=== PATIENT | male | born 1970 | race Caucasian/White ===

== ENCOUNTER 2020-10-02 08:19 | Outpatient (REF) | payer OTHER, SELFPAY ==
[2020-10-02 09:08] LABS: MANUAL DIFF FLAG NO
[2020-10-02 09:12] LABS: Basophils Percent Auto 0.6 % (0-2); Eosinophils Absolute Auto 0.1 X10*3/uL (0.0-0.4); Eosinophils Percent Auto 1.4 % (0-4); Hematocrit 49.2 % (42-52); Imm Gran Abs Auto 0.05 X10*3/uL (0.00-0.03); Lymphocytes Absolute Auto 1.4 X10*3/uL (1.2-4.9); Mean Corpuscular HGB Conc 34.6 g/dl (31.0-36.0); Mean Corpuscular Hemoglobin 31.7 pg (27.0-33.0); Mean Corpuscular Volume 91.6 fL (80-98); Mean Platelet Volume 10.1 fL (9.4-12.4); Monocytes Absolute Auto 0.4 X10*3/uL (0.1-1.2); Monocytes Percent Auto 8.2 % (2-11); Neutrophils Absolute Auto 3.1 X10*3/uL (2.0-8.3); Neutrophils Percent Auto 60.8 % (45-73); Platelet Count 248 X10*3/uL (160-400); Red Blood Count 5.37 X10*6/uL (4.60-5.80); Red Cell Distribution Width 12.9 % (11.0-16.0)
[2020-10-02 09:48] LABS: Alanine Aminotransferase 135 U/L (0-40); Albumin Level 4.1 g/dL (3.5-5.0); Alkaline Phosphatase 92 U/L (39-117); Anion Gap 11 (12-20); Aspartate Amino Transferase 83 U/L (5-37); Bilirubin Total 0.9 mg/dL (0.0-1.0); Blood Urea Nitrogen 11 mg/dL (9-16); Calcium 9.1 mg/dL (8.4-10.2); Carbon Dioxide 26 mmol/L (22-29); Chloride 106 mmol/L (96-108); Cholesterol 206 mg/dL; Estimated Glomerular Filt Rate > 60; Glucose Random 161 mg/dL (60-115); HDL Cholesterol 42 mg/dL; LDL Cholesterol Calculated 118 mg/dl; Potassium 4.4 mmol/L (3.3-5.1); Sodium 139 mmol/L (135-145); Total Protein 7.5 g/dL (6.5-8.0); Triglycerides 231 mg/dL; Uric Acid 5.6 mg/dL (3.4-7.0)
[2020-10-02 10:07] LABS: Erythrocyte Sedimentation Rate 2 MM/HR (0-15)
[2020-10-02 10:10] LABS: Free T4 (Free Thyroxine) 0.85 ng/dL (0.71-1.85); Thyroid Stimulating Hormone 0.86 uIU/mL (0.32-4.0)
[2020-10-02 10:37] LABS: Folate 12.1 ng/mL (> or = 4.0); Vitamin B12 257 pg/mL (200-900)
== END 2020-10-02 08:20 | disposition home or self-care (01) ==
LOC: HO.LAB 08:19
PROVIDERS: PCP Internal Medicine; Visit Provider Internal Medicine
DX: I10 Essential (primary) hypertension (principal); R79.89 Other specified abnormal findings of blood chemistry; L40.50 Arthropathic psoriasis, unspecified; E78.00 Pure hypercholesterolemia, unspecified; E78.1 Pure hyperglyceridemia
CPT/HCPCS: 36415; 80053; 80061; 82607; 82746; 84153; 84439; 84443; 84550; 85025; 85652

== ENCOUNTER 2020-10-03 15:10 | Outpatient (REF) | payer OTHER, SELFPAY ==
[2020-10-03 16:13] LABS: Iron 69 mcg/dL (45-160); Percent Iron Saturation 20 % (15-50); Total Iron Binding Capacity 350 mcg/dL (228-428); Unsaturated Iron Binding 281 ug/dL
[2020-10-04 03:52] LABS: HBc Num1 0.06 S/CO (0.00-0.79); HBsAGNum1 0.18 S/CO (0.00-0.99); Hepatitis B Core Antibody Nonreactive (Nonreactive); Hepatitis B Surface Antigen Negative (Negative)
[2020-10-04 03:53] LABS: HBS Num1 0.21 mIU/mL (0-7.99); ~HepC Num1 0.12 S/CO (0.00-0.79); ~Hepatitis B Surface Antibody NONREACTIVE (Nonreactive); ~Hepatitis C Antibody Nonreactive (Nonreactive)
[2020-10-04 13:27] LABS: Anti Nuclear Antibody Screen NEGATIVE (NEGATIVE)
[2020-10-05 07:41] LABS: Prot Elec - Albumin 4.5 g/dL (3.8-4.8); Prot Elec - Alpha1 0.3 g/dL (0.2-0.3); Prot Elec - Alpha2 0.6 g/dL (0.5-0.9); Prot Elec - Beta 1 0.5 g/dL (0.4-0.6); Prot Elec - Beta 2 0.4 g/dL (0.2-0.5); Prot Elec - Gamma 1.6 g/dL (0.8-1.7); Prot Elec - Total Protein 7.9 g/dL (6.1-8.1)
[2020-10-08 23:37] LABS: Smooth Muscle Antibody <20 U (<20)
== END 2020-10-03 15:11 | disposition home or self-care (01) ==
LOC: HO.LAB 15:10
PROVIDERS: PCP Internal Medicine; Visit Provider Internal Medicine
DX: Z01.84 Encounter for antibody response examination (principal); Z11.59 Encounter for screening for other viral diseases; R79.89 Other specified abnormal findings of blood chemistry; R94.5 Abnormal results of liver function studies
CPT/HCPCS: 36415; 83540; 84155; 84165; 86038; 86039; 86255; 86704; 86706; 86803; 87340

== ENCOUNTER 2020-11-01 07:17 | Outpatient (REF) | payer OTHER, SELFPAY ==
--- NOTE | ~2020-11-01 | US_ITS ---
EXAMINATION: US ABDOMEN COMPLETE CLINICAL INFORMATION: Other specified abnormal findings of blood chemistry. COMPARISON: None. TECHNIQUE: Real-time imaging of the abdominal viscera. Technically limited study secondary to body habitus. FINDINGS: PANCREAS: Normal. ABDOMINAL AORTA: The proximal, mid, and distal segments are normal in caliber. INFERIOR VENA CAVA: Visualized portions are normal. LIVER: The liver is normal in size. The liver contour is normal. Increased parenchymal echogenicity. No focal hepatic lesion. There is no intrahepatic biliary duct dilatation seen. GALLBLADDER: Normal. The gallbladder is physiologically distended without evidence of stones, sludge, polyps, wall thickening or pericholecystic fluid. COMMON BILE DUCT: Normal in caliber measuring 0.4 cm in diameter. RIGHT KIDNEY: Normal. No hydronephrosis. No renal calculi or focal parenchymal lesions. The kidney measures 12.5 cm in maximum dimension. LEFT KIDNEY: Normal. No hydronephrosis. No renal calculi or focal parenchymal lesions. The kidney measures 13.2 cm in maximum dimension. SPLEEN: Mildly enlarged. The spleen measures 15.9 cm in maximum dimension. FREE FLUID: None. US/US abdomen complete IMPRESSION: Increased hepatic parenchymal echogenicity, which can be seen in the setting of steatosis. Underlying hepatocellular disease cannot be excluded. No hepatic parenchymal lesion or biliary ductal dilatation. Mild splenomegaly.
== END 2020-11-01 07:18 | disposition home or self-care (01) ==
LOC: HO.US 07:17
PROVIDERS: Visit Provider Internal Medicine
DX: R79.89 Other specified abnormal findings of blood chemistry (principal)
CPT/HCPCS: 76700

== ENCOUNTER 2021-05-10 09:07 | Outpatient (REF) | payer OTHER, SELFPAY ==
[2021-05-10 10:15] LABS: Prothrombin Time 11.3 SEC (9.9-13.0)
[2021-05-10 10:18] LABS: Alanine Aminotransferase 73 U/L (0-40); Alkaline Phosphatase 87 U/L (39-117); Aspartate Amino Transferase 36 U/L (5-37); Bilirubin Direct 0.3 mg/dL (0.0-0.5); Bilirubin Total 0.5 mg/dL (0.0-1.0); Total Protein 7.5 g/dL (6.5-8.0)
[2021-05-11 13:41] LABS: Alpha 1 Anti-trypsin 151 mg/dL (83-199)
[2021-05-12 22:01] LABS: Anti Nuclear Antibody Screen NEGATIVE (NEGATIVE)
[2021-05-15 12:42] LABS: Smooth Muscle Antibody <20 U (<20)
[2021-05-15 15:17] LABS: Mitochondrial Antibodies NEGATIVE (NEGATIVE)
== END 2021-05-10 09:08 | disposition home or self-care (01) ==
LOC: HO.10HDL 09:07
PROVIDERS: Visit Provider Internal Medicine
DX: K76.0 Fatty (change of) liver, not elsewhere classified (principal); R74.8 Abnormal levels of other serum enzymes
CPT/HCPCS: 36415; 80076; 82103; 85610; 86015; 86038; 86039; 86255; 86256

== ENCOUNTER 2021-05-31 08:53 | Day surgery (SDC) | payer OTHER, SELFPAY ==
[2021-05-24 14:46] VITALS: BMI 39.3
--- NOTE | 2021-05-30 10:59 | P.CONAN_ITS ---
Documented by User: Gricelda Mccarthy NP 05/30/21 10:59 HPI - Anesthesia Eval Consult details Narrative: 51yo M for Colonoscopy PMFSH Active Problems Active Problems: All Active Problems (Updated 05/24/21 @ 14:45 by Lilo Anderson RN) Colon cancer screening (Acute) LFT elevation (Acute) Impaired glucose tolerance (Acute) Biceps tendon rupture, proximal (Acute) Annual physical exam (Acute) Fatty liver (Acute) Hypertriglyceridemia (Acute) Hypertension (Acute) Carpal tunnel syndrome, bilateral (Acute) Psoriatic arthritis (Acute) Obesity (Acute) Past Medical History Medical History Carpal tunnel syndrome, bilateral Concussion COVID-19 vaccine series completed Elevated blood sugar Gout Hypertension Hypertriglyceridemia Obesity Psoriatic arthritis Family History Family History Mother Breast cancer Maternal Grandmother Breast cancer Father Substance abuse Paternal Grandfather Substance abuse Paternal Grandmother Substance abuse Surgical History Surgical History Hx of appendectomy S/P left knee arthroscopy Social History Social History Housing: House Are you a primary career services coordinator to a significant other at home: No Do you presently have visiting nurse or other home services: No Alcohol intake: current Alcohol intake frequency: holidays/special occasions only Patient Tobacco Use Status: Never used Tobacco e-Cigarette/Vaping Use: Never Used Second Hand Smoke Exposure: No Use of substances other than those prescribed or required for medical reasons: No Have you been hit, kicked, punched, or otherwise hurt by someone within the past year? If so, by whom?: No Are you DNR?: No Advance Directives: No Advance Directives Information Provided: Yes Advance Directives on File: No Recently lost weight without trying: No Eating poorly because of decreased appetite: No Nutrition Risks: No Nutritional Risk Poor oral hygiene: No (upper left broken molar) service: No Current occupational status: employed Cognitive needs: No Hearing needs: No Vision needs: Yes (Glasses) Meds Allergies Allergy/AdvReac Type Severity Reaction Status Date / Time bee pollen [bee stings] Allergy Severe Anaphylaxis Verified 05/24/21 14:46 lisinopril Allergy Intermediate cough Verified 04/29/21 08:57 Home Medications Medication Instructions Recorded Confirmed Last Taken Type allopurinol 300 mg tablet 300 mg PO DAILY 06/26/20 05/24/21 Unknown History etanercept 25 mg/0.5 mL 25 mg SUBCUT QWEEK 06/26/20 05/24/21 Unknown History subcutaneous solution (Enbrel) Exam Exam Date and Time: May 30, 2021 1059 Height,Weight and Vital Signs: Height 5 ft 10 in Weight 124.284 kg Assessment and Plan Assessment Anesthesia Assessment: Chart Reviewed Documented by User: Agustina Lezama MD 05/31/21 10:21 [facility] Active Problems Active Problems: All Active Problems (Updated 05/24/21 @ 14:45 by Lilo Anderson RN) Colon cancer screening (Acute) LFT elevation (Acute) Impaired glucose tolerance (Acute) Biceps tendon rupture, proximal (Acute) Annual physical exam (Acute) Fatty liver (Acute) Hypertriglyceridemia (Acute) Hypertension (Acute) Carpal tunnel syndrome, bilateral (Acute) Psoriatic arthritis (Acute) Obesity (Acute) Snoring- never tested for MATHIEU Past Medical History Medical History Carpal tunnel syndrome, bilateral Concussion COVID-19 vaccine series completed Elevated blood sugar Gout Hypertension Hypertriglyceridemia Obesity Psoriatic arthritis Family History Family History Mother Breast cancer Maternal Grandmother Breast cancer Father Substance abuse Paternal Grandfather Substance abuse Paternal Grandmother Substance abuse Family history of problems with anesthesia: No Surgical History Surgical History Hx of appendectomy S/P left knee arthroscopy History of Problems with Anesthesia: No Social History Social History Housing: House Are you a primary career services coordinator to a significant other at home: No Do you presently have visiting nurse or other home services: No Alcohol intake: current Alcohol intake frequency: holidays/special occasions only Patient Tobacco Use Status: Never used Tobacco e-Cigarette/Vaping Use: Never Used Second Hand Smoke Exposure: No Use of substances other than those prescribed or required for medical reasons: No Have you been hit, kicked, punched, or otherwise hurt by someone within the past year? If so, by whom?: No Are you DNR?: No Advance Directives: No Advance Directives Information Provided: Yes Advance Directives on File: No Recently lost weight without trying: No Eating poorly because of decreased appetite: No Nutrition Risks: No Nutritional Risk Poor oral hygiene: No (upper left broken molar) service: No Current occupational status: employed Cognitive needs: No Hearing needs: No Vision needs: Yes (Glasses) Meds Allergies Allergy/AdvReac Type Severity Reaction Status Date / Time bee pollen [bee stings] Allergy Severe Anaphylaxis Verified 05/24/21 14:46 lisinopril Allergy Intermediate cough Verified 04/29/21 08:57 Home Medications Medication Instructions Recorded Confirmed Last Taken Type allopurinol 300 mg tablet 300 mg PO DAILY 06/26/20 05/24/21 Unknown History etanercept 25 mg/0.5 mL 25 mg SUBCUT QWEEK 06/26/20 05/24/21 Unknown History subcutaneous solution (Enbrel) Exam Height,Weight and Vital Signs: Height 5 ft 10 in Weight 124.284 kg Vital Signs Temp Pulse Resp BP Pulse Ox 05/31/21 09:30 97.7 F 84 16 142/86 H 96 Airway Mallampati Class: III TM Dist: >3cm Neck ROM: Full Loose/Missing/Broken Teeth: Yes (Broken top left back ) Heart: RRR Lungs: CTAB Assessment and Plan Assessment Anesthesia Assessment: Anesthesia Plan Discussed Final Anesthetic Review Family History of Problems with Anesthesia: No History of Problems with Anesthesia: No NPO: Yes ASA Class: III Final Preanesthetic Review: No Changes in Pt Med Stat, Meds/Allgs Chart Reviewed, Consent Obtained/Reviewed and Anes Risks/Benef Reviewed Patient Risk: Intermediate Procedure Risk: Low Assessment/Block/Sedation in SS: Assess/Block/Sedation-SS Anesthetic Plan Anesthetic Plan: MAC: Disposition: Standard PACU
[2021-05-31 09:30] VITALS: BP 142/86; PULSE 84; RESP 16; TEMP 36.5; O2SAT 96
[2021-05-31] MEDS: Lactated Ringers 1,000 ML 100 ML IVCONT (09:31)
[2021-05-31 11:59] VITALS: BP 144/63; PULSE 80; RESP 16; TEMP 36.5; O2SAT 97
--- NOTE | 2021-05-31 12:01 | PM.OP ---
Brief Operative Note Date of Service: 05/31/21 Pre-op diagnosis: Screening Post-op diagnosis: other (Colon polyps) Procedure: Colonoscopy to the cecum and TI with hot snare polypectomy x 2 Surgeon: Gordon Osborn Anesthesia: MAC Was an Hemodialysis Rn used for this Procedure?: No Estimated blood loss (mL): 0 Pathology: other (A. Transverse colon polyps) Condition: stable Disposition: PACU
[2021-05-31 12:14] VITALS: BP 143/82; PULSE 66; RESP 18; O2SAT 100
--- NOTE | 2021-05-31 12:18 | OP_ITS ---
SURGEON: Gordon Osborn MD INDICATIONS: The patient presents for evaluation of colorectal cancer screening. Full consent obtained from him for this, including risks of bleeding and perforation. PREOPERATIVE DIAGNOSIS: Colorectal cancer screening. POSTOPERATIVE DIAGNOSIS: PROCEDURE PERFORMED: Colonoscopy to cecum and terminal ileum with hot snare polypectomy x2. ESTIMATED BLOOD LOSS: COMPLICATIONS: ANESTHESIA: Monitored anesthesia care. ASSISTANTS: SPECIMENS: POSTOPERATIVE DIAGNOSES: Colorectal cancer screening, colon polyps, diverticulosis and internal hemorrhoids. DESCRIPTION OF PROCEDURE: The patient was placed in the left lateral decubitus position. The digital rectal exam revealed no abnormalities. The Olympus video pediatric colonoscope was entered into the rectum and advanced easily to the cecum. Once in the cecum, I did identify normal-appearing cecal pouch with appendiceal orifice and a normal-appearing ileocecal valve. The terminal ileum was cannulated and appeared normal. The scope was withdrawn back in the colon. The entire cecum and ileocecal valve appeared normal. The scope was slowly withdrawn assessing all mucosal surfaces carefully. Preparation was excellent. In the transverse colon were 2 approximately 8 to 10 mm grossly adenomatous polyps, which were each snared and recovered by suction. The polypectomy site appeared clean, without any sign of residual polyp nor bleeding. I did not visualize any other polyps, colitis, nor angiodysplasia. There was a mild amount of sigmoid diverticulosis. In the rectum, scope was retroflexed visualizing small internal hemorrhoids, but no other pathology. The rectal mucosa appeared normal. The scope was straightened and withdrawn from the patient. He tolerated the procedure well and was returned to recovery area in stable condition. IMPRESSION: 1. Colon polyps, status post hot snare polypectomy. 2. Diverticulosis. 3. Internal hemorrhoids. PLAN: The results of the pathology will be checked. Assuming these are tubular adenoma, I would recommend a followup colonoscopy in 5 years. He was advised not to use any aspirin and NSAIDs for 1 week. A recent liver profile showed only minimal elevations in regard to the history of fatty liver. I would recommend that he have a liver profile every year or so. He was advised to obviously watch his diet, avoid alcohol and lose weight. He would see me again on a p.r.n. basis, but referred back to me if the liver enzymes begin to climb significantly, i.e., more than 2-3 times normal. This has been discussed with his . MD LUIS Contreras/BEBA / [id number]
[2021-05-31 12:30] VITALS: BP 137/86; PULSE 64; RESP 20; TEMP 36.4; O2SAT 100
== END 2021-05-31 12:59 | disposition home or self-care (01) ==
PROVIDERS: PCP Internal Medicine; Visit Provider Internal Medicine
PROC: 0DJD8ZZ Inspection of Lower Intestinal Tract, Via Natural or Artificial Opening Endoscopic (ICD-10-PCS; CPT 45378; principal; 2021-05-31 10:20)
DX: Z12.11 Encounter for screening for malignant neoplasm of colon (principal); D12.3 Benign neoplasm of transverse colon; K57.30 Diverticulosis of large intestine without perforation or abscess without bleeding; K64.8 Other hemorrhoids; K76.0 Fatty (change of) liver, not elsewhere classified; R74.8 Abnormal levels of other serum enzymes; I10 Essential (primary) hypertension; M10.9 Gout, unspecified; L40.50 Arthropathic psoriasis, unspecified; Z79.899 Other long term (current) drug therapy
CPT/HCPCS: 45385; 88305; J2250

== ENCOUNTER 2021-09-04 08:18 | Outpatient (REF) | payer OTHER, SELFPAY ==
--- NOTE | ~2021-09-04 | US_ITS ---
EXAMINATION: US COMPLETE ABDOMEN WITH LIVER ELASTOGRAPHY CLINICAL INFORMATION: Fatty liver COMPARISON: Previous abdominal ultrasound October 2020 TECHNIQUE: Real-time imaging of the abdominal viscera. Noninvasive ultrasound liver fibrosis assessment is performed using Javier ElastPQ point quantification shear wave elastography (2D-SWE) with a C5-2 MHz transducer. Multiple elastography samples are obtained. FINDINGS: PANCREAS: Normal. ABDOMINAL AORTA: The proximal, middle, and distal aortic segments are normal in caliber. INFERIOR VENA CAVA: Visualized portions are normal. LIVER: Liver echotexture is increased. The liver is normal in size and contour. No focal lesion or intrahepatic biliary duct dilatation. The right lobe measures 16 cm in length. The left lobe measures 12 cm in length. Portal flow is normal/hepatopedal Shear wave liver elastography median stiffness is 2.1 m/s (reference: normal median stiffness is 1.3 m/s or less). IQR/median stiffness to assess sampling precision is 0.07 (reference: good quality data set is IQR/median stiffness of 0.15 or less). GALLBLADDER: Normal. The gallbladder is physiologically distended without evidence of stones, sludge, polyps, wall thickening or pericholecystic fluid. COMMON BILE DUCT: Normal in caliber measuring 0.4 cm in diameter. RIGHT KIDNEY: Normal. No hydronephrosis. No renal calculi or focal parenchymal lesions. The kidney measures 11.6 cm in maximum dimension. LEFT KIDNEY: Normal. No hydronephrosis. No renal calculi or focal parenchymal lesions. The kidney measures 12.5 cm in maximum dimension. SPLEEN: Spleen is slightly enlarged. The spleen measures 13.3 cm in maximum dimension. FREE FLUID: None. US/US abdomen comp w elastography IMPRESSION: 1. Impression: Echogenic liver probably representing fatty infiltration. Slightly enlarged spleen. 2. Liver elastography: Adequate liver sampling. Increased liver stiffness suggestive of compensated advanced chronic liver disease but need further test for confirmation. REFERENCE: Society of Radiologists in Ultrasound Liver Stiffness Thresholds (2020): LIVER STIFFNESS THRESHOLDS: *Liver Stiffness equal or less than 1.3 m/s: High probability of being normal. *Liver Stiffness less than 1.7 m/s: In the absence of other known clinical signs, rules out compensated advanced chronic liver disease. *Liver Stiffness 1.7-2.1 m/s: Suggestive of compensated advanced chronic liver disease but need further test for confirmation. *Liver Stiffness over 2.1 m/s: Rules in compensated advanced chronic liver disease. *Liver Stiffness over 2.4 m/s: Suggestive of clinically significant portal hypertension. QUALITY OF DATA SET: *IQR/Median value equal or less than 0.15 implies a quality data set. *IQR/Median value over 0.15 implies a poor quality data set. SIGNIFICANT CHANGE FROM PRIOR EXAM: Significant change if liver stiffness measurement is 10% or greater from prior exam. OTHER CONSIDERATIONS: The stage of liver fibrosis may be overestimated in the setting of acute hepatitis, liver inflammation, elevated liver function tests, hepatic vascular congestion, obstructive cholestasis, non-fasting state, and infiltrative diseases such as amyloidosis and lymphoma. In some patients with NAFLD, the liver stiffness thresholds for compensated advanced chronic liver disease may be lower. In causes other than viral hepatitis and NAFLD, liver stiffness thresholds are not well established.
== END 2021-09-04 08:19 | disposition home or self-care (01) ==
LOC: HO.US 08:18
PROVIDERS: Visit Provider Internal Medicine
DX: K76.0 Fatty (change of) liver, not elsewhere classified (principal); R74.8 Abnormal levels of other serum enzymes
CPT/HCPCS: 76705; 76981

== ENCOUNTER 2022-05-15 13:35 | Outpatient (REF) | payer OTHER, SELFPAY ==
--- NOTE | ~2022-05-15 | US_ITS ---
EXAMINATION: US SCROTUM CLINICAL INFORMATION: Testicular pain, left. COMPARISON: None TECHNIQUE: A sonogram of the scrotum was performed assessing sanabria-scale appearance and color Doppler flow. Spectral Doppler analysis of the arterial and venous flow were performed in the testes bilaterally. FINDINGS: There are bilateral scrotal pearls present. RIGHT: Right testicle measures 4.6 x 2.5 x 2.9 cm, volume 17.6 mL. No focal testicular parenchymal lesions are visualized. Spectral Doppler analysis of the arterial and venous flow is normal in the right testis. Right epididymal head is normal in size. There are 2 epididymal head cysts present the largest measuring approximately 4 x 4 x 3 mm in size. No right hydrocele or varicocele is seen. Right epididymal Doppler flow is normal. LEFT: Left testicle measures 4.2 x 2.3 x 3.1 cm, volume 15.3 mL. No focal testicular parenchymal lesions are visualized. Spectral Doppler analysis of the arterial and venous flow is normal in the left testis. Left epididymal head is normal in size. There is a 5 x 5 x 3 mm epididymal head cyst present. No left hydrocele or varicocele is seen. Left epididymal Doppler flow is normal. US/US scrotum IMPRESSION: No significant abnormality appreciated. No evidence of orchitis, acute epididymitis, or torsion. Scrotal pearls and epididymal head cysts bilaterally.
== END 2022-05-15 13:36 | disposition home or self-care (01) ==
LOC: HO.US 13:35
PROVIDERS: PCP Internal Medicine; Visit Provider Internal Medicine
DX: N50.812 Left testicular pain (principal); G47.10 Hypersomnia, unspecified
CPT/HCPCS: 76870

== ENCOUNTER → 2022-05-21 15:46 | Outpatient (REF) | payer OTHER, SELFPAY | LOC: HO.SL 15:46 | PROVIDERS: PCP Internal Medicine; Visit Provider Internal Medicine | DX: G47.33 Obstructive sleep apnea (adult) (pediatric) (principal); G47.10 Hypersomnia, unspecified | CPT/HCPCS: 95806 ==

== ENCOUNTER 2023-05-11 08:32 | Outpatient (AMB) | payer OTHER, SELFPAY ==
[2023-05-11 08:36] VITALS: BP 140/82; PULSE 83; O2SAT 97; BMI 38.3
--- NOTE | 2023-05-11 08:36 | A.OFFPC_ITS ---
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: No Allergies bee pollen [bee stings] Allergy (Severe, Verified 05/11/23 08:41) Anaphylaxis lisinopril Allergy (Intermediate, Verified 05/11/23 08:41) cough Medication List - Last Reconciled 05/11/23 by Kahlil You MD allopurinol 300 mg PO DAILY apremilast 30 mg PO BID [AUTO PAP 6-16 cm H20 humidified AIR As directed] calcipotriene 0.005% 1 appl topical DAILY clobetasol 0.05% 1 appl topical DAILY etanercept (Enbrel) 25 mg subcut QWEEK guaifenesin ER (Mucinex) 600 mg PO BID losartan 25 mg PO DAILY 30 days Tobacco use date assessed: 05/11/23 Dental Screening Dental Screen Date: 05/11/23 Did you have a dental visit in the last 12 months?: No Did you have a dental problem in the last 6 months where you did not have access to dental care?: No HPI Annual Exam HPI Details 53-year-old obese male with a history of psoriatic arthritis hypertension hypercholesterolemia fatty liver impaired glucose tolerance coming in for physical exam last seen in April 2022 having hypersomnia and left testicular pain. Ultrasound done patient had a colonoscopy in May 2021 tubular adenoma. Review of the notes follows up with Dermatology on Otezla clobetasol +calcipotriene, Enbrel. Blood work May 2022 shows normal B12 elevated blood sugar normal kidney function electrolytes are normal liver funct ion is normal folic acid is normal bad cholesterol is 128 normal PSA hemoglobin A1c of 5.7 normal thyroid number. Patient had a sleep study in May 2022 showing mild to moderate obstructive sleep apnea AHI 15.1 has been advised CPAP/auto PAP mode and pressure setting of 6-16 cm. And testicular ultrasound showing no significant abnormality noted scrotal pearls and epididymal head cyst bilaterally. Orthopedic note in March 2022 for bilateral carpal tunnel syndrome did have steroid injections appears to be responding. BP at home- good at home. L groin pain cough 2 weeks , no fevers, sore throat, - sick also. more cough , concern on meds - congested, , heaviness on chest, , diarrhea, drink water. Blood pressure is a little bit high but patient is very anxious because of present medication and the patient has been coughing. 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 No masses on the left groin [facility] Medical History (Updated 05/11/23 @ 09:16 by Kahlil You MD) Gout COVID-19 vaccine series completed Elevated blood sugar Concussion Carpal tunnel syndrome, bilateral Hypertension Hypertriglyceridemia Psoriatic arthritis Obesity Surgical History (Updated 05/11/23 @ 08:58 by Kahlil You MD) History of carpal tunnel release Hx of appendectomy S/P left knee arthroscopy Family History (Updated 05/05/22 @ 08:55 by Kahlil You MD) Mother Breast cancer Maternal Grandmother Breast cancer Father Substance abuse Paternal Grandfather Substance abuse Heart attack Paternal Grandmother Substance abuse Social History (Updated 05/05/22 @ 08:56 by Kahlil You MD) Housing: House Are you a primary disabilities caregiver to a significant other at home: No Do you presently have visiting nurse or other home services: No Alcohol intake: current Alcohol intake frequency: holidays/special occasions only Patient Tobacco Use Status: Never used Tobacco e-Cigarette/Vaping Use: Never Used Second Hand Smoke Exposure: No service: No Current occupational status: employed Cognitive needs: No Hearing needs: No Vision needs: Yes (Glasses) Questionnaire PHQ-9 Over the last 2 weeks, how often have you been bothered by any of the following problems? 1. Little interest or pleasure in doing things: not at all 2. Feeling down, depressed, or hopeless: not at all 3. Trouble falling or staying asleep, or sleeping too much: not at all 4. Feeling tired or having little energy: not at all 5. Poor appetite or overeating: not at all 6. Feeling bad about yourself - or that you are a failure or have let yourself or your family down: not at all 7. Trouble concentrating on things, such as reading the newspaper or watching television: not at all 8. Moving or speaking so slowly that other people could have noticed. Or the op posite - being so fidgety or restless that you have been moving around a lot more than usual: not at all 9. Thoughts that you would be better off or of hurting yourself in some way: not at all Total score: 0 Depression Screening Interpretation: Negative Depression Screening Done: Yes Source: Developed by Drs. Gordon Lerma, Nancy Tyson, Frank Snow and colleagues, with an educational steffany from [employer]. Thrive Questionnaire Date Thrive assessed: 05/11/23 AUDIT C Alcohol Use Questionnaire (AUDIT-C) 1. How often do you have a drink containing alcohol?: Never 2. How many drinks containing alcohol do you have on a typical day when you are drinking?: 1 or 2 3. How often do you have six or more drinks on one occasion?: Never Total Score: 0 OTONIEL-7 AMB Questionnaire OTONIEL-7 Date OTONIEL - 7 assessed: 05/11/23 Feeling nervous, anxious, or on edge: 0 = Not at all Not being able to stop or control worryin = Not at all Worrying too much about different things: 0 = Not at all Trouble relaxin = Not at all Being so restless that it is hard to sit still: 0 = Not at all Becoming easily annoyed or irritable: 0 = Not at all Feeling afraid as if something awful might happen: 0 = Not at all Total OTONIEL-7 score (0-4 normal; 5-9 mild; 10-14 moderate; 15-21 severe): 0 Source: Developed by Drs. Gordon Lerma, Nancy Tyson, Frank Snow and colleagues, with an educational steffany from [employer]. Review of Systems Const Denies poor appetite and Denies weakness Eyes Denies no additional complaints ENT Reports Normal hearing present, Denies dizziness, Denies nasal congestion, Denies tinnitus and Denies sore throat Card Denies chest pain, Denies syncope, Denies rapid heart rate and Denies dyspnea Resp Denies cough and Denies dyspnea GI Denies change in stool character, Reports constipation, Denies diarrhea, Denies nausea and Denies vomiting Denies dysuria and Denies urinary frequency Neuro Reports Normal hearing present, Denies confusion, Denies dizziness, Denies syncope and Denies weakness Psych Denies confusion Physical exam (Primary Care) Vital Signs: Last Vital Signs Pulse 83 05/11/23 08:36 BP 140/82 H 05/11/23 08:36 Pulse Ox 97 05/11/23 08:36 Oxygen Delivery Method Room Air 05/11/23 08:36 BMI result Body Mass Index 38.3 Tobacco/Smoking Status: Tobacco use Status Tobacco use date assessed 05/11/23 05/11/23 08:38 Patient Tobacco Use Status Never used Tobacco 05/11/23 08:38 e-Cigarette/Vaping Use Never Used 05/11/23 08:38 PHQ-9: PHQ-9 Score PHQ-9: Total score 0 05/11/23 08:38 Depression Screening Interpretation: Negative Thrive Assessment: Date of Thrive Assessment Date Thrive assessed 05/11/23 05/11/23 08:38 Const General: alert and awake; No confusion Orientation/consciousness: No confusion HENMT Head: Yes normocephalic Ears: external ears normal and TM's normal bilaterally Face and sinus: Yes normal facial exam Mouth: moist mucous membranes Throat: Yes tonsils normal Eyes Conjunctivae: conjunctivae normal Pupils: Equal, round and reactive pupils present and Pupil accommodation reflex normal Direct Ophthalmoscopy: normal light reflex Neck Neck: No lymphadenopathy Thyroid: Thyroid normal Chest Chest palpation & inspection: normal inspection of the chest Resp Effort & Inspection: normal respiratory effort and no audible wheezes Auscultation: clear to auscultation bilaterally, no crackles, no wheezes and lung sounds not diminished Cardio Rate: regular rate Rhythm: regular rhythm Peripheral pulses: radial pulses present and dorsalis pedis present GI Other: Declined rectal exam for now Palpation (GI): no masses Auscultation: normal bowel sounds and normoactive bowel sounds Rectal Exam - Male: Yes deferred Other: Mild tenderness on the left groin area where hernia can occur but did not appreciate any mass protrusion Male General Exam: Yes normal external exam Skin Other: Mild erythematous rash on the elbows and legs and abdomen mild scaliness also Neuro General: deep tendon reflexes 2+ bilaterally and No confusion Cranial nerves: Yes Equal, round and reactive pupils present, Yes Midline tongue present, Yes Normal hearing present and Yes Ability to bilaterally elevate shoulders present Cognition (Neuro): normal cognition Gait exam (Neuro): Normal gait present Motor exam (neuro): 5/5 motor strength present throughout Deep tendon reflexes (DTR's): Right brachioradialis reflex intensity grade: 2+, Left brachioradialis reflex intensity grade: 2+, Right patellar reflex intensity grade: 2+ and Left patellar reflex intensity grade: 2+ Extrem General: No edema Assessment and Plan Assessment & Plan (1) Annual physical exam: Code(s): Z00.00 - Encounter for general adult medical examination without abnormal findings (2) Psoriatic arthritis: Code(s): L40.50 - Arthropathic psoriasis, unspecified Plan: Patient continue to follow-up with Dermatology placed on Otla (3) Obesity: Code(s): E66.9 - Obesity, unspecified Qualifiers: Obesity type: due to excess calories Obesity classification: adult class 3 (BMI >= 40) Serious obesity comorbidity presence: without serious comorbidity Body mass index: BMI 40.0-44.9 Qualified Code(s): E66.01 - Morbid (severe) obesity due to excess calories; Z68.41 - Body mass index [BMI]40.0- 44.9, adult Plan: Diet and exercise noted weight loss (4) Hypertension: Code(s): I10 - Essential (primary) hypertension Qualifiers: Hypertension type: essential hypertension Qualified Code(s): I10 - Ess ential (primary) hypertension Plan: Continue with blood pressure medication. Decrease salt intake and exercise patient takes losartan 25 mg once a day. Advised to monitor at home. (5) Fatty liver: Code(s): K76.0 - Fatty (change of) liver, not elsewhere classified Plan: Low-fat diet and exercise (6) Impaired glucose tolerance: Code(s): R73.02 - Impaired glucose tolerance (oral) Plan: Decrease the amount of carbohydrate intake, pasta, bread, rice and potatoes are all sugar and that is aside from all the sweet stuff, remember that fruits are good but they are Sweet also. Repeat blood work requested (7) Obstructive sleep apnea: Comment: 05/21/2022 Code(s): G47.33 - Obstructive sleep apnea (adult) (pediatric) Plan: Continue with CPAP more than 4 hours a night and benefits from this (8) Groin pain, chronic, left: Code(s): R10.32 - Left lower quadrant pain; G89.29 - Other chronic pain Plan: Will order for CT scan of the abdomen and pelvis with contrast (9) Acute bronchitis: Code(s): J20.9 - Acute bronchitis, unspecified Plan: Antibiotic treatment given and for the postnasal drip Flonase nasal spray Orders: Orders Comprehensive Met. Panel Today R73.02 - Impaired glucose tolerance (oral) Free T4 (Free Thyroxine) Today R73.02 - Impaired glucose tolerance (oral) Lipid Panel Today E78.00 - Pure hypercholesterolemia, unspecified, R73.02 - Impaired glucose tolerance (oral) Thyroid Stimulating Hormone Today R73.02 - Impaired glucose tolerance (oral) Vitamin B12 and Folate Today R73.02 - Impaired glucose tolerance (oral) CT abdomen pelvis w IV con Today G89.29 - Other chronic pain, R10.32 - Left lower quadrant pain Complete Blood Count Auto Diff Today R73.02 - Impaired glucose tolerance (oral) Prostate Specific Antigen Scr Today R73.02 - Impaired glucose tolerance (oral) Hemoglobin A1c Today R73.02 - Impaired glucose tolerance (oral) Blood Urea Nitrogen Today G89.29 - Other chronic pain, R10.32 - Left lower quadrant pain Creatinine Today G89.29 - Other chronic pain, R10.32 - Left lower quadrant pain Medications: New azithromycin (Zithromax) For 250 mg dose pack: take 500 mg today (day 1), then 250 mg for 4 days (days 2-5) PO 6 tabs 0RF J20.9 - Acute bronchitis, unspecified fluticasone propionate 50 mcg/actuation (Flonase Allergy Relief) administer into each nostril 2 sprays intranasal DAILY 16 grams 0RF J20.9 - Acute bronchitis, unspecified Coding Level of Care Code Est Pt Prev Care 40-64y(17494) Diagnoses Annual physical exam Z00.00 Psoriatic arthritis L40.50 Class 3 severe obesity due to excess calories without serious comorbidity with body mass index (BMI) of 40.0 to 44.9 in adult E66.01; Z68.41 Obesity type: due to excess calories Obesity classification: adult class 3 (BMI >= 40) Serious obesity comorbidity presence: without serious comorbidity Body mass index: BMI 40.0-44.9 Essential hypertension I10 Hypertension type: essential hypertension Fatty liver K76.0 Impaired glucose tolerance R73.02 Obstructive sleep apnea G47.33 Groin pain, chronic, left R10.32; G89.29 Acute bronchitis J20.9
== END 2023-05-11 09:21 | disposition home or self-care (01) ==
PROVIDERS: Visit Provider Internal Medicine
DX: Z00.00 Encounter for general adult medical examination without abnormal findings (principal); L40.50 Arthropathic psoriasis, unspecified; E66.01 Morbid (severe) obesity due to excess calories; Z68.41 Body mass index [BMI] 40.0-44.9, adult; I10 Essential (primary) hypertension; K76.0 Fatty (change of) liver, not elsewhere classified; R73.02 Impaired glucose tolerance (oral); G47.33 Obstructive sleep apnea (adult) (pediatric); R10.32 Left lower quadrant pain; G89.29 Other chronic pain; J20.9 Acute bronchitis, unspecified
CPT/HCPCS: 99396

== ENCOUNTER 2023-06-22 06:14 | Outpatient (REF) | payer OTHER, SELFPAY ==
[2023-06-22 06:31] LABS: MANUAL DIFF FLAG NO
[2023-06-22 07:33] LABS: Basophils Percent Auto 0.8 % (0-2); Eosinophils Absolute Auto 0.2 X10*3/uL (0.0-0.4); Eosinophils Percent Auto 2.9 % (0-4); Hematocrit 46.9 % (42.0-52.0); Hemoglobin 15.8 g/dl (14.0-18.0); Imm Gran Abs Auto 0.04 X10*3/uL (0.00-0.03); Imm Gran Pct Auto 0.8 % (0.0-0.4); Lymphocytes Absolute Auto 1.1 X10*3/uL (1.2-4.9); Lymphocytes Percent Auto 20.7 % (20-40); Mean Corpuscular HGB Conc 33.7 g/dl (31.0-36.0); Mean Corpuscular Hemoglobin 30.2 pg (27.0-33.0); Mean Corpuscular Volume 89.7 fL (80.0-98.0); Mean Platelet Volume 9.4 fL (9.4-12.4); Monocytes Absolute Auto 0.4 X10*3/uL (0.1-1.2); Monocytes Percent Auto 8.4 % (2-11); Neutrophils Absolute Auto 3.4 x10*3/uL (2.0-8.3); Neutrophils Percent Auto 66.4 % (45-73); Platelet Count 331 X10*3/uL (160-400); Red Blood Count 5.23 X10*6/uL (4.60-5.80); Red Cell Distribution Width 13.1 % (11.0-16.0); White Blood Count 5.1 X10*3/uL (4.8-10.8)
[2023-06-22 08:03] LABS: Estimated Average Glucose 114 mg/dL; Hemoglobin A1C 148.7916 umol/L; Hemoglobin A1c % 5.6 % (<6.0)
[2023-06-22 08:10] LABS: Alanine Aminotransferase 23 U/L (0-40); Albumin Level 3.7 g/dL (3.5-5.0); Alkaline Phosphatase 92 U/L (39-117); Anion Gap 9 (12-20); Aspartate Amino Transferase 21 U/L (5-37); Bilirubin Total 0.4 mg/dL (0.0-1.0); Blood Urea Nitrogen 12 mg/dL (9-16); Calcium 8.7 mg/dL (8.4-10.2); Carbon Dioxide 27 mmol/L (22-29); Chloride 110 mmol/L (96-108); Cholesterol 150 mg/dL (<200); Estimated Glomerular Filt Rate > 60; Glucose Random 130 mg/dL (60-115); HDL Cholesterol 34 mg/dL (>40); LDL Cholesterol Calculated 98 mg/dL (<100); Potassium 4.2 mmol/L (3.3-5.1); Sodium 142 mmol/L (135-145); Triglycerides 91 mg/dL (<150)
[2023-06-22 08:26] LABS: Free T4 (Free Thyroxine) 0.88 ng/dL (0.71-1.85); Thyroid Stimulating Hormone 1.17 uIU/mL (0.32-4.0)
[2023-06-22 08:38] LABS: Folate 6.4 ng/mL (> or = 4.0); Prostate Specific Antigen Scr 0.97 ng/mL (<0.05-4.0); Vitamin B12 241 pg/mL (200-900)
== END 2023-06-22 06:15 | disposition home or self-care (01) ==
LOC: HO.LAB 06:14
PROVIDERS: PCP Internal Medicine; Visit Provider Internal Medicine
DX: Z12.5 Encounter for screening for malignant neoplasm of prostate (principal); R73.02 Impaired glucose tolerance (oral); E78.00 Pure hypercholesterolemia, unspecified
CPT/HCPCS: 36415; 80053; 80061; 82607; 82746; 83036; 84153; 84439; 84443; 85025

== ENCOUNTER 2023-06-29 06:51 | Outpatient (REF) | payer OTHER, SELFPAY ==
--- NOTE | ~2023-06-29 | CT_ITS ---
EXAMINATION: CT ABDOMEN AND PELVIS WITH CONTRAST CLINICAL INFORMATION: Left lower quadrant pain COMPARISON: None TECHNIQUE: Multidetector volumetric images were obtained from the superior aspect of the liver through the pubic symphysis following administration 85 mL of Omnipaque 350 intravenous contrast. Sagittal and coronal reformatted images were obtained on the technologist's workstation. Oral contrast: No This CT examination was performed using dose optimization techniques as appropriate, variously including the following: *Automated exposure control *Adjustment of mA and/or kV according to patient size (this includes techniques or standardized protocols for targeted exams where dose is matched to indication/reason for exam; i.e. extremities or head) *Use of iterative reconstruction technique DLP: 803 mGy-cm FINDINGS: MICROFICHE DUPLICATOR: Nonobstructive bowel pattern. Moderate fecal retention. Left hemipelvic phlebolith. LUNG BASES: The visualized lung bases are unremarkable. LIVER, GALLBLADDER, AND BILIARY TREE: Mild decreased attenuation to the liver parenchyma. No focal hepatic lesion or biliary ductal dilatation is present. The gallbladder is unremarkable with no evidence of radiopaque gallstones, gallbladder wall thickening, or obvious pericholecystic inflammatory changes. PANCREAS: Unremarkable. SPLEEN: Unremarkable. ADRENAL GLANDS: Unremarkable. KIDNEYS AND URETERS: The kidneys are normal in size, shape, and attenuation. No hydronephrosis or hydroureter. Nonobstructing punctate right renal calculi. Too small to characterize left renal hypodensities likely cysts. No perinephric stranding. BLADDER: Thickened montoya in the nearly totally decompressed urinary bladder. GASTROINTESTINAL TRACT: Moderately distended unremarkable stomach. Nonobstructive bowel pattern. Unremarkable terminal ileum. Appendix not identified. Moderate fecal retention. Diverticulosis without diverticulitis. ABDOMINAL WALL: Small fat filled umbilical hernia. Small fat filled inguinal hernias. LYMPH NODES: Mildly prominent iliac lymph nodes measuring approximately 1.4 cm on both sides. Multiple prominent groin lymph nodes, largest confluence of the right measures 3.6 cm largest lymph node on the left measures 2.3 cm. No pathologic retroperitoneal adenopathy. VASCULAR: Unremarkable. PELVIC VISCERA: Prominent prostate and seminal vesicles. Left hemipelvic phlebolith. OSSEOUS STRUCTURES: L4-L5 and L5-S1 mild disc protrusions. CT/CT abdomen pelvis w IV con IMPRESSION: No acute intra-abdominal or pelvic pathology. Diverticulosis without diverticulitis. Nonobstructing right renal calculi. Mild hepatic steatosis. Prominent bilateral iliac and groin lymph nodes, correlate with physical examination. Ultrasound may be warranted. Fleischner guidelines were followed.
[2023-06-29] MEDS: iohexoL 350 MG/ML 100 ML INFUS..BTL 85 ML IV (10:01)
[2023-06-29] MEDS: Barium Sulfate Oral (Mocha) 450 ML ORAL.SUSP 850 ML PO (10:03)
== END 2023-06-29 06:52 | disposition home or self-care (01) ==
LOC: HO.CT 06:51
PROVIDERS: PCP Internal Medicine; Visit Provider Internal Medicine
DX: R10.32 Left lower quadrant pain (principal); G89.29 Other chronic pain
CPT/HCPCS: 74177; Q9967

== ENCOUNTER 2023-08-03 10:51 | Outpatient (REF) | payer OTHER, SELFPAY ==
--- NOTE | ~2023-08-03 | US_ITS ---
EXAMINATION: ULTRASOUND BILATERAL INGUINAL REGIONS CLINICAL INFORMATION: Enlarged inguinal lymph nodes. COMPARISON: CT abdomen and pelvis dated 06/29/2023. TECHNIQUE: Using a linear array transducer with grayscale and color modalities, ultrasound examination is performed in bilateral inguinal regions. FINDINGS: The cutaneous, subcutaneous, muscular and fascial planes are unremarkable. Within the right inguinal region, 1.3 x 0.5 x 1.0 cm, 1.5 x 0.5 x 1.7 cm, 1.4 x 0.5 x 3.4 cm, 3.8 x 0.8 x 1.7 cm and 3.1 x 0.5 x 1.3 cm reniform lymph nodes are seen. These show normal architectural features. Within the left inguinal region, 1.1 x 0.6 x 3.8 cm, 1.0 x 0.6 x 1.7 cm and 2.4 x 0.8 x 3.0 cm reniform lymph nodes are seen. These show normal architectural features. No mass or fluid collection is seen. No foreign body is seen. US/US pelvic limited IMPRESSION: Multiple enlarged bilateral inguinal lymph nodes are seen, possibly reactive. These are nonspecific and should be managed on a clinical basis. If of continued clinical concern, consider short-term follow-up ultrasound imaging in 3-6 months to ensure stability/regression.
== END 2023-08-03 10:52 | disposition home or self-care (01) ==
LOC: HO.US 10:51
PROVIDERS: PCP Internal Medicine; Visit Provider Internal Medicine
DX: R59.0 Localized enlarged lymph nodes (principal)
CPT/HCPCS: 76857

== ENCOUNTER 2023-09-02 07:47 | Outpatient (AMB) | payer OTHER, SELFPAY ==
--- NOTE | 2023-09-02 07:56 | MHC.OFFVIS ---
Vital Signs 09/02/23 08:05 Height 5 ft 10 in Weight 267 lb BMI 38.3 BP 139/65 Blood Pressure Location Rt brachial Position Sitting Pulse 85 Intake Visit Reasons: Enlarged lymph nodes~ Bilateral inguina Intake Note: Patient referred by PCP Dr. You for enlarged inguinal lymph nodes on groin area X3m. Patient reports only change started Otezla 5m ago. Has been on Enbrel for yrs. 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 Because of progressive symptoms, patient has had a workup including CT scan of the abdomen pelvis and ultrasound of bilateral groins. These demonstrate bilateral adenopathy as well as pelvic adenopathy. Patient has not noticed any bulge or swelling in either groin. He has no history of trauma to the area. Does not own a cat. Patient is not aware of any symptoms of fever, chills, night sweats, weight loss. Because of progression of symptoms, he presents here for further evaluation. [facility] Medical History Gout COVID-19 vaccine series completed Elevated blood sugar Concussion Carpal tunnel syndrome, bilateral Hypertension Hypertriglyceridemia Psoriatic arthritis Obesity Surgical History History of carpal tunnel release Hx of appendectomy S/P left knee arthroscopy Family History Mother Breast cancer Maternal Grandmother Breast cancer Father Substance abuse Paternal Grandfather Substance abuse Heart attack Paternal Grandmother Substance abuse Social History Housing: House Are you a primary assistant child care teacher to a significant other at home: No Do you presently have visiting nurse or other home services: No Alcohol intake: current Alcohol intake frequency: holidays/special occasions only Patient Tobacco Use Status: Never used Tobacco e-Cigarette/Vaping Use: Never Used Second Hand Smoke Exposure: No service: No Current occupational status: employed Cognitive needs: No Hearing needs: No Vision needs: Yes (Glasses) Physical Exam Vital Signs: Last Vital Signs Pulse 85 09/02/23 08:05 BP 139/65 09/02/23 08:05 BMI result Body Mass Index 38.3 Const Other: Moderately corpulent male Chest Other: Chest breath sounds bilaterally. No evidence of any cervical, periclavicular, or groin adenopathy demonstrated GI Other: Patient was examined with supine and standing with Valsalva. Corpulent abdomen. Bilateral groin exam demonstrates no obvious hernias. Patient has with deep palpation adenopathy bilaterally with a large node noted in the left groin. Genitalia grossly within normal limits. Assessment & Plan Assessment & Plan (1) Lymphadenopathy, inguinal: Code(s): R59.0 - Localized enlarged lymph nodes Category: Surgical Plan I had a lengthy discussion with the patient regarding therapeutic options. The 1 extreme is to repeat ultrasound of the groin and 3-6 months time and the other extreme would be to do an excisional biopsy of 1 of the left groin lymph nodes. Either approach would be acceptable I explained to the patient. Because the patient feels that his groin symptoms are progressing, he wishes to proceed with the latter in the hope of obtaining a definitive diagnosis for his adenopathy and bilateral groin symptoms. Risks, benefits, alternatives of left excisional biopsy of groin lymph node (S) were discussed with the patient and his and included but not limited to bleeding, infection, none diagnosis, numbness, pain, scarring and the patient wishes to proceed. All questions answered. Arrangements were made for this. Coding Level of Care Code New Pt Level 5 (66115) Diagnoses Lymphadenopathy, inguinal R59.0
[2023-09-02 08:05] VITALS: BP 139/65; PULSE 85; BMI 38.3
== END 2023-09-02 08:59 | disposition home or self-care (01) ==
PROVIDERS: PCP Internal Medicine; Visit Provider Surgery
DX: R59.0 Localized enlarged lymph nodes (principal)
CPT/HCPCS: 99204

== ENCOUNTER → 2023-09-02 07:47 | Outpatient (BNVA) | payer OTHER, SELFPAY | PROVIDERS: PCP Internal Medicine; Visit Provider Surgery ==

== ENCOUNTER 2023-09-25 06:51 | Day surgery (SDC) | payer OTHER, SELFPAY ==
[2023-09-23 14:07] VITALS: BMI 38.3
--- NOTE | 2023-09-24 12:45 | MHC.SHP ---
Pre-Procedural Eval Section A - 24 Hr Update-Section A only Date of Service: 09/24/23 The patient is an INPATIENT: No Changes since office visit: No Cold of Flu in the past 2 weeks, No New Medical Problems, No Changes in Medication and No Patient answered all questions Section B - Complete if H&P > 30 days Chief Complaint: Localized enlarged lymph nodes Allergies: Allergies Allergy/AdvReac Type Severity Reaction Status Date / Time bee pollen [bee stings] Allergy Severe Anaphylaxis Verified 09/02/23 08:03 lisinopril Allergy Intermediate cough Verified 09/02/23 08:03 Plan I have reviewed the history and physical and performed a pertinent physical examination on my patient. No changes have occurred unless specified. Time Spent With Patient Time: Total time managing care of this patient today ____ minutes.
[2023-09-25 06:53] VITALS: BP 128/71; PULSE 76; RESP 20; TEMP 36.6; O2SAT 96; BMI 39.1
[2023-09-25] MEDS: Lactated Ringers 1,000 ML 100 ML IVCONT (07:14)
--- NOTE | 2023-09-25 08:00 | P.CONAN_ITS ---
Documented by User: Gricelda Mccarthy NP 09/24/23 09:59 HPI - Anesthesia Eval Consult details Narrative: 53yo M for Left Wide Local excision of Groin Lymph Node/Mass PMFSH Active Problems Active Problems: All Active Problems Lymphadenopathy, inguinal (Acute) Right renal stone (Acute) Acute bronchitis (Acute) Groin pain, chronic, left (Acute) Obstructive sleep apnea (Acute) Testicular pain, left (Acute) Hypersomnia (Acute) Gout (Acute) Colon cancer screening (Acute) LFT elevation (Acute) Impaired glucose tolerance (Acute) Biceps tendon rupture, proximal (Acute) Annual physical exam (Acute) Fatty liver (Acute) Hypertriglyceridemia (Acute) Hypertension (Acute) Carpal tunnel syndrome, bilateral (Acute) Psoriatic arthritis (Acute) Obesity (Acute) Past Medical History Medical History Gout COVID-19 vaccine series completed Elevated blood sugar Concussion Carpal tunnel syndrome, bilateral Hypertension Hypertriglyceridemia Psoriatic arthritis Obesity Family History Family History Mother Breast cancer Maternal Grandmother Breast cancer Father Substance abuse Paternal Grandfather Substance abuse Heart attack Paternal Grandmother Substance abuse Family history of problems with anesthesia: No Surgical History Surgical History History of carpal tunnel release Hx of appendectomy S/P left knee arthroscopy History of Problems with Anesthesia: No Social History Social History Housing: House Are you a primary child caregiver to a significant other at home: No Do you presently have visiting nurse or other home services: No Alcohol intake: current Alcohol intake frequency: does not drink Patient Tobacco Use Status: Never used Tobacco e-Cigarette/Vaping Use: Never Used Second Hand Smoke Exposure: No Are you DNR?: No Advance Directives: No Advance Directives Information Provided: Yes Nutrition Risks: No Nutritional Risk service: No Current occupational status: employed Cognitive needs: No Hearing needs: No Vision needs: Yes (Glasses) Meds Allergies Allergy/AdvReac Type Severity Reaction Status Date / Time bee pollen [bee stings] Allergy Severe Anaphylaxis Verified 09/02/23 08:03 lisinopril Allergy Intermediate cough Verified 09/02/23 08:03 Home Medications ?Medication ?Instructions ?Recorded ?Confirmed ?Last Taken ?Type allopurinol 300 mg tablet 300 mg PO DAILY 06/26/20 09/02/23 Unknown History etanercept 25 mg/0.5 mL 25 mg subcut QWEEK 06/26/20 09/02/23 Unknown History subcutaneous solution (Enbrel) calcipotriene 0.005 % topical cream 1 appl topical DAILY 05/05/22 09/02/23 Unknown History clobetasol 0.05 % topical ointment 1 appl topical DAILY 05/05/22 09/02/23 Unknown History apremilast 30 mg tablet 30 mg PO BID 05/11/23 09/02/23 Unknown History guaifenesin 600 mg tablet, 600 mg PO BID 05/11/23 09/02/23 Unknown History extended release 12 hr (Mucinex) Exam Height,Weight and Vital Signs: Height 5 ft 10 in Weight 121.109 kg Pertinent Lab Results Pertinent Lab Results: Laboratory Tests 06/22/23 06:30 WBC 5.1 Hgb 15.8 Hct 46.9 Plt Count 331 Sodium 142 Potassium 4.2 Chloride 110 H Carbon Dioxide 27 BUN 12 Creatinine 1.13 Assessment and Plan Assessment Anesthesia Assessment: Chart Reviewed Final Anesthetic Review Family History of Problems with Anesthesia: No History of Problems with Anesthesia: No Documented by User: Jing Carrillo DO 09/25/23 08:05 [facility] Past Medical History Medical History Gout COVID-19 vaccine series completed Elevated blood sugar Concussion Carpal tunnel syndrome, bilateral Hypertension Hypertriglyceridemia Psoriatic arthritis Obesity Family History Family History Mother Breast cancer Maternal Grandmother Breast cancer Father Substance abuse Paternal Grandfather Substance abuse Heart attack Paternal Grandmother Substance abuse Family history of problems with anesthesia: No Surgical History Surgical History History of carpal tunnel release Hx of appendectomy S/P left knee arthroscopy History of Problems with Anesthesia: No Social History Social History Housing: House Are you a primary child caregiver to a significant other at home: No Do you presently have visiting nurse or other home services: No Alcohol intake: current Alcohol intake frequency: does not drink Patient Tobacco Use Status: Never used Tobacco e-Cigarette/Vaping Use: Never Used Second Hand Smoke Exposure: No Are you DNR?: No Advance Directives: No Advance Directives Information Provided: Yes Nutrition Risks: No Nutritional Risk service: No Current occupational status: employed Cognitive needs: No Hearing needs: No Vision needs: Yes (Glasses) Meds Allergies Allergy/AdvReac Type Severity Reaction Status Date / Time bee pollen [bee stings] Allergy Severe Anaphylaxis Verified 09/02/23 08:03 lisinopril Allergy Intermediate cough Verified 09/02/23 08:03 Home Medications ?Medication ?Instructions ?Recorded ?Confirmed ?Last Taken ?Type allopurinol 300 mg tablet 300 mg PO DAILY 06/26/20 09/02/23 Unknown History etanercept 25 mg/0.5 mL 25 mg subcut QWEEK 06/26/20 09/02/23 Unknown History subcutaneous solution (Enbrel) calcipotriene 0.005 % topical cream 1 appl topical DAILY 05/05/22 09/02/23 Unknown History clobetasol 0.05 % topical ointment 1 appl topical DAILY 05/05/22 09/02/23 Unknown History apremilast 30 mg tablet 30 mg PO BID 05/11/23 09/02/23 Unknown History guaifenesin 600 mg tablet, 600 mg PO BID 05/11/23 09/02/23 Unknown History extended release 12 hr (Mucinex) Exam Exam Date and Time: September 25, 2023 2028 Height,Weight and Vital Signs: Height 5 ft 10 in Weight 121.109 kg Height 5 ft 10 in Weight 123.6 kg Vital Signs Temperature 98 F 09/25/23 06:53 Pulse Rate 76 09/25/23 06:53 Respiratory Rate 20 09/25/23 06:53 Blood Pressure 128/71 09/25/23 06:53 Pulse Oximetry 96 09/25/23 06:53 Oxygen Delivery Method Room Air 09/25/23 06:53 Temperature 98 F 09/25/23 06:53 Pulse Rate 76 09/25/23 06:53 Respiratory Rate 20 09/25/23 06:53 Blood Pressure 128/71 09/25/23 06:53 Pulse Oximetry 96 09/25/23 06:53 Oxygen Delivery Method Room Air 09/25/23 06:53 Airway Mallampati Class: IV TM Dist: >3cm Neck ROM: Full Loose/Missing/Broken Teeth: No (patient denies any loose or broken teeth) Heart: S1S2 Lungs: CTAB Assessment and Plan Assessment Anesthesia Assessment: Anesthesia Plan Discussed and Chart Reviewed Final Anesthetic Review Family History of Problems with Anesthesia: No History of Problems with Anesthesia: No NPO: Yes ASA Class: III Final Preanesthetic Review: No Changes in Pt Med Stat, Meds/Allgs Chart Reviewed, Consent Obtained/Reviewed and Anes Risks/Benef Reviewed Patient Risk: Intermediate Procedure Risk: Low Anesthetic Plan Anesthetic Plan: GA and Agree w/ Assess. and Plan Disposition: Standard PACU
--- NOTE | 2023-09-25 09:31 | P.OP_ITS ---
Operative Note Operative Note Date of Service: 09/25/23 Narrative: Preoperative diagnosis: [] Left infra inguinal/groin adenopathy Postop diagnosis: [] The same Procedure [] excisional biopsy left groin lymph nodes Surgeon: [] Francisco Mail List Librarian: [] Type of Anesthesia: [] LMA Indication for surgery: [] Several large fish flesh lymph nodes of the infra inguinal area were uneventfully excised and sent as a fresh specimen to pathology for evaluation. Very corpulent patient Findings: [] Patient brought to the operating room, placed on operative table in supine position, after an adequate level of general anesthesia was induced, the left groin was prepped and draped in usual sterile fashion using a small left infra inguinal para inguinal incision over the adenopathy in question, this carried down through skin, subcutaneous tissue, and Katalina's fascia. Several lymph nodes were identified and circumferentially dissected using combination of blunt, sharp, and Bovie dissection. Specimen was handled as noted above. Wound was irrigated, secured hemostasis. Was closed in the following manner; Katalina's fascia was reapproximated using interrupted 3-0 Vicryl sutures. Interrupted inverted deep dermal 3-0 Vicryl sutures followed by running subcuticular 4-0 Vicryl sutures were placed. Steri-Strips and sterile dressings were applied. Wound was infiltrated with 1% lidocaine/0.5% Marcaine at completion. Sponge, needle, and instrument counts reported correct. Patient tolerated the procedure well and emerged from anesthesia stable condition. EBL minimal
[2023-09-25 09:40] VITALS: BP 135/81; PULSE 80; RESP 12; TEMP 36.1; O2SAT 97
[2023-09-25 09:45] VITALS: BP 141/78; PULSE 72; RESP 14; O2SAT 94
[2023-09-25 09:50] VITALS: BP 145/75; PULSE 76; RESP 16; O2SAT 94
[2023-09-25 09:55] VITALS: BP 129/93; PULSE 68; RESP 16; O2SAT 96
[2023-09-25 10:10] VITALS: BP 140/78; PULSE 70; RESP 16; TEMP 36.2; O2SAT 95
--- OUTSIDE RECORDS SUMMARY | 2023-09-25 11:28 | XMS_ITS | Patient Health Record ---
Author Organization [facility] Address [address] [place] [address] Care Team Providers Care Orchid Worker Name Role Phone Kahlil You MD Primary Care Provider Gordon Santana [phone] ALLERGIES Allergen (clinical drug ingredient) Drug/Non Drug Allergy documented on EMR Reaction Allergy Type Onset Date Status Bee Sting Unknown Allergy Active REASON FOR REFERRAL No Information MEDICATIONS Medication SIG (Take, Route, Frequency, Duration) Notes Start Date End Date Status Allopurinol 300 MG Oral for 30 Active Lisinopril 5 MG Oral for 30 Ac tive Enbrel Mini 50 MG/ML Subcutaneous for 28 Active Losartan Potassium 25 MG Oral for 90 Active IMMUNIZATIONS Vaccine Route Administration Date Status Comme nts Influenza Unknown 05/01/2021 Refused SOCIAL HISTORY Tobacco Use: Social History Observation Description Date Details (start date - stop date) Never Smoker NA - NA Sex Assigned At : Social History Observation Description Sex Assigned At Unknown Tobacco Use/Smoking Question Answer Notes Patient is a nonsmoker Alcohol Screen Question Answer Notes Did you have a drink contain ing alcohol in the past year? Yes How often did you have a dri nk containing alcohol in the past year? 2 to 4 times a month (2 points) How many drinks did you have on a typical day when you were drinking in the past year? 1 or 2 drinks (0 point) How often did you have 6 or more drinks on one occasion in the past year? Less than monthly (1 point) Points 3 Interpretation Negative PROBLEMS Problem Type ICD Code Onset Dates Problem Status W/U Status Risk SNOMED Code Notes Problem Encounter for screening for malignant neoplasm of colon (Z12.11) Active confirmed 622853892 Problem Preprocedural examination (Z01.818) Active confirmed 853163492613340 Problem Fatty liver (K76.0) Active confirmed 025204054 Problem Elevated liver enzymes (R74.8) Active confirmed 781040918 Problem Diverticulosis of colon (K57.30) Active confirmed Diverticulosi s of colon (206994915) PLAN OF TREATMENT Pending Test Test Name Order Date LIVER PROFILE 05/01/2021 PROTHROMBIN TIME (PT, INR) 05/01/2021 FLUOR. ANTINUCLEAR AB SCREEN (GELA) 04/20 US ABDOMEN COMP WITH ELASTOGRAPHY 2021 Alpha 1 Anti-trypsin 05/01/2021 Mitochondrial Antibody 05/01/2021 Smooth Muscle Antibody 05/01/2021 US abdomen comp w elastography Future Test Test Name Order Date COLONOSCOPY 05/01/2021 Insurance Providers Payer Name Payer Address Payer Phone Subscriber Number Group Number Insured Name Patient Relationship to Insured Coverage Start Date Coverage End Date [facility] [address] [place] [phone] [id number] MEGAN MCKEON Self - patient is the insured MEDICAL (GENERAL) HISTORY Medical History History ICD Code High blood pressure Psoriatic arthritis-on Enbrel for many y ears Gout Denies LA,DM,CVA,Lung disease,renal dise ase Torn right biceps in 02/2021, but no lopez gloria Fatty liver with slight elev ation of LFTs--he had a completely negative liver workup including viral serologies, iron studies, alpha-1 antitrypsin level, and autoimmune studies. He has not had a liver biopsy. Screening colonoscopy in May revealed 2 tubular adenomas that were removed. Surgical History Surgery Date(Month/Year) Knee Appendix 1984
== END 2023-09-25 10:40 | disposition home or self-care (01) ==
PROVIDERS: Pathology Anatomic Pathology & Clinical Pathology; PCP Internal Medicine; Visit Provider Surgery
PROC: (CPT 38531; principal; 2023-09-25 08:30)
DX: R59.0 Localized enlarged lymph nodes (principal); I10 Essential (primary) hypertension; Z88.8 Allergy status to other drugs, medicaments and biological substances
CPT/HCPCS: 38531; 36415; 88184; 88185; 88305; 88341; 88342; 88360; J0690; J1100; J2250; J2405; J2704; J2795; J3010

== ENCOUNTER → 2023-09-25 06:51 | Outpatient (BNV) | payer OTHER, SELFPAY | PROVIDERS: PCP Internal Medicine; Visit Provider Surgery | DX: R59.0 Localized enlarged lymph nodes (principal) | CPT/HCPCS: 38531 ==

== ENCOUNTER 2023-10-05 08:57 | Outpatient (AMB) | payer OTHER, SELFPAY ==
--- NOTE | 2023-10-05 09:05 | MHC.OFFVIS ---
Intake Visit Reasons: S/P WLE Lt groin lymph node/mass Intake Note: This patient presents for a post-op assessment status post wide local excision left groin lymph nodes/mass. Patient c/o: reports no complaints. 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 Accompanied by: Spouse Allergies bee pollen [bee stings] Allergy (Severe, Verified 10/05/23 09:09) Anaphylaxis lisinopril Allergy (Intermediate, Verified 10/05/23 09:09) cough Medication List - Last Reconciled 10/05/23 by Vince Singh MD allopurinol 300 mg PO DAILY apremilast 30 mg PO BID [AUTO PAP 6-16 cm H20 humidified AIR As directed] calcipotriene 0.005% 1 appl topical DAILY clobetasol 0.05% 1 appl topical DAILY etanercept (Enbrel) 25 mg subcut QWEEK fluticasone propionate 50 mcg/actuation (Flonase Allergy Relief) 2 sprays intranasal DAILY guaifenesin ER (Mucinex) 600 mg PO BID hydrocodone-acetaminophen 5-325 mg 1 tab PO Q4-6H PRN losartan 25 mg PO DAILY 30 days HPI Comments Details: Patient presents to the for follow-up. He has minimal incisional discomfort. He is still having nonspecific constitutional symptoms. His pathology was benign. [facility] Medical History Gout COVID-19 vaccine series completed Elevated blood sugar Concussion Carpal tunnel syndrome, bilateral Hypertension Hypertriglyceridemia Psoriatic arthritis Obesity Surgical History History of carpal tunnel release Hx of appendectomy S/P left knee arthroscopy Family History Mother Breast cancer Maternal Grandmother Breast cancer Father Substance abuse Paternal Grandfather Substance abuse Heart attack Paternal Grandmother Substance abuse Social History Housing: House Are you a primary laboratory animal care veterinarian to a significant other at home: No Do you presently have visiting nurse or other home services: No Alcohol intake: current Alcohol intake frequency: does not drink Comment: counts correct Patient Tobacco Use Status: Never used Tobacco e-Cigarette/Vaping Use: Never Used Second Hand Smoke Exposure: No service: No Current occupational status: employed Cognitive needs: No Hearing needs: No Vision needs: Yes (Glasses) Physical Exam GI Other: Groin incision clean dry and intact healing very well Assessment & Plan Assessment & Plan (1) Lymphadenopathy, inguinal: Comment: Biopsy September 2023- Code(s): R59.0 - Localized enlarged lymph nodes Category: Surgical Plan: Current plan is see the patient 6 months time with follow-up surveillance pelvic ultrasound regarding pelvic/groin adenopathy. All questions answered. Patient will be given note for light duty for the next few weeks time. Patient will see me as noted above after the ultrasound or p.r.n.. (2) Pelvic lymphadenopathy: Code(s): R59.0 - Localized enlarged lymph nodes Category: Surgical Plan: As noted above (3) Postop check: Code(s): Z09 - Encounter for follow-up examination after completed treatment for conditions other than malignant neoplasm Category: Medical Plan: See above Orders: Orders US pelvic complete 6 Months R59.0 - Localized enlarged lymph nodes Coding Level of Care Code Global (08395) Diagnoses Lymphadenopathy, inguinal R59.0 Pelvic lymphadenopathy R59.0 Postop check Z09
== END 2023-10-05 09:18 | disposition home or self-care (01) ==
PROVIDERS: PCP Internal Medicine; Visit Provider Surgery
DX: R59.0 Localized enlarged lymph nodes (principal); Z09 Encounter for follow-up examination after completed treatment for conditions other than malignant neoplasm
CPT/HCPCS: 99024

== ENCOUNTER → 2023-10-05 08:57 | Outpatient (BNVA) | payer OTHER, SELFPAY | PROVIDERS: PCP Internal Medicine; Visit Provider Surgery ==

== ENCOUNTER 2023-10-19 11:34 | Outpatient (AMB) | payer OTHER, SELFPAY ==
[2023-10-19 11:35] VITALS: BP 122/70; PULSE 74; O2SAT 98; BMI 37.7
--- NOTE | 2023-10-19 11:35 | A.OFFPC_ITS ---
Vital Signs 10/19/23 11:35 Height 5 ft 10 in Weight 263 lb BMI 37.7 BP 122/70 Blood Pressure Location Lt brachial Position Sitting Pulse 74 Pulse Source Pulse Oximeter Pulse Oximetry (%) 98 Oxygen Delivery Method Room Air Intake Visit Reasons: Follow Up from Surgery Allergies bee pollen [bee stings] Allergy (Severe, Verified 10/19/23 11:36) Anaphylaxis lisinopril Allergy (Intermediate, Verified 10/19/23 11:36) cough Tobacco use date assessed: 05/11/23 Dental Screening Dental Screen Date: 05/11/23 HPI Follow Up from Surgery HPI Details 53-year-old obese male with a history of psoriatic arthritis hypertension impaired glucose tolerance obstructive sleep apnea hypertension last seen in 05/09/2023. Had some left groin pain and a CT scan was ordered. Patient's colonoscopy is up-to-date 06/09/2021 with tubular adenoma. Patient was referred to the surgeon and had an excision of the left groin lymph node/mass (reactive paracortical and follicular hyperplasia negative for malignancy) plan of monitoring it every 6 months using ultrasound. Patient also follows up with Rheumatology seen in 07/08/2023 by [facility] the gout carpal tunnel psoriatic arthropathy. Continuing with current medications. With a CT scan done in June patient was noted to have diverticular disease right renal calculi hepatic steatosis. [facility] Medical History Gout COVID-19 vaccine series completed Elevated blood sugar Concussion Carpal tunnel syndrome, bilateral Hypertension Hypertriglyceridemia Psoriatic arthritis Obesity Surgical History History of carpal tunnel release Hx of appendectomy S/P left knee arthroscopy Family History (Updated 10/19/23 @ 11:37 by Jennifer Roberto CMA) Mother Breast cancer Maternal Grandmother Breast cancer Father Substance abuse Paternal Grandfather Substance abuse Heart attack Paternal Grandmother Substance abuse Other Mental health disorder Social History Housing: House Are you a primary point of care specialist to a significant other at home: No Do you presently have visiting nurse or other home services: No Alcohol intake: current Alcohol intake frequency: does not drink Comment: counts correct Patient Tobacco Use Status: Never used Tobacco e-Cigarette/Vaping Use: Never Used Second Hand Smoke Exposure: No service: No Current occupational status: employed Cognitive needs: No Hearing needs: No Vision needs: Yes (Glasses) Questionnaire PHQ-9 Over the last 2 weeks, how often have you been bothered by any of the following problems? 1. Little interest or pleasure in doing things: not at all 2. Feeling down, depressed, or hopeless: not at all 3. Trouble falling or staying asleep, or sleeping too much: not at all 4. Feeling tired or having little energy: not at all 5. Poor appetite or overeating: not at all 6. Feeling bad about yourself - or that you are a failure or have let yourself or your family down: not at all 7. Trouble concentrating on things, such as reading the newspaper or watching television: not at all 8. Moving or speaking so slowly that other people could have noticed. Or the opposite - being so fidgety or restless that you have been moving around a lot more than usual: not at all 9. Thoughts that you would be better off or of hurting yourself in some way: not at all Total score: 0 Depression Screening Interpretation: Negative Depression Screening Done: Yes Source: Developed by Drs. Gordon Lerma, Nancy Tyson, Frank Snow and colleagues, with an educational steffany from [employer]. Thrive Questionnaire Date Thrive assessed: 05/11/23 AUDIT C Alcohol Use Questionnaire (AUDIT-C) 1. How often do you have a drink containing alcohol?: Never 2. How many drinks containing alcohol do you have on a typical day when you are drinking?: 1 or 2 3. How often do you have six or more drinks on one occasion?: Never Total Score: 0 OTONIEL-7 AMB Questionnaire OTONIEL-7 Date OTONIEL - 7 assessed: 05/11/23 Source: Developed by Drs. Gordon Lerma, Nancy Tyson, Frank Snow and colleagues, with an educational steffany from [employer]. Physical exam (Primary Care) Vital Signs: Last Vital Signs Pulse 74 10/19/23 11:35 BP 122/70 10/19/23 11:35 Pulse Ox 98 10/19/23 11:35 Oxygen Delivery Method Room Air 10/19/23 11:35 BMI result Body Mass Index 37.7 Tobacco/Smoking Status: Tobacco use Status Tobacco use date assessed 05/11/23 10/19/23 11:38 Patient Tobacco Use Status Never used Tobacco 10/19/23 11:38 e-Cigarette/Vaping Use Never Used 10/19/23 11:38 PHQ-9: PHQ-9 Score PHQ-9: Total score 0 10/19/23 11:38 Depression Screening Interpretation: Negative Thrive Assessment: Date of Thrive Assessment Date Thrive assessed 05/11/23 10/19/23 11:38 Const General: alert; No acute distress Eyes Conjunctivae: conjunctivae normal Resp Auscultation: clear to auscultation bilaterally Cardio Rate: regular rate Rhythm: regular rhythm GI Inspection: Yes normal to inspection Extrem General: Yes normal to inspection and No edema Assessment and Plan Assessment & Plan (1) Lymphadenopathy, inguinal: Comment: Biopsy September 2023- Code(s): R59.0 - Localized enlarged lymph nodes Plan: Patient had biopsy done revealing negative results. And will continue to monitor. (2) Right renal stone: Comment: June 2023IMPRESSION: No acute intra-abdominal or pelvic pathology. Diverticulosis without diverticulitis. Nonobstructing right renal calculi. Mild hepatic steatosis. Prominent bilateral iliac and groin lymph nodes, correlate with physical examination. Ultrasound may be warranted. Code(s): N20.0 - Calculus of kidney Plan: Increase oral fluids. (3) Impaired glucose tolerance: Code(s): R73.02 - Impaired glucose tolerance (oral) Plan: Decrease the amount of carbohydrate intake, pasta, bread, rice and potatoes are all sugar and that is aside from all the sweet stuff, remember that fruits are good but they are Sweet also. (4) Hypertension: Code(s): I10 - Essential (primary) hypertension Qualifiers: Hypertension type: essential hypertension Qualified Code(s): I10 - Essential (primary) hypertension Plan: Continue with blood pressure medication. Decrease salt intake and exercise on losartan 25 mg once a day (5) Hypertriglyceridemia: Code(s): E78.1 - Pure hyperglyceridemia Plan: Avoid fried foods, chicken skin, eggs, butter margarine, pastries and meat. Be it pork or beef they have a lot of cholesterol LDL goal of less than 130 and triglyceride of less than 150. (6) Obesity: Code(s): E66.9 - Obesity, unspecified Qualifiers: Obesity type: due to excess calories Obesity classification: adult class 3 (BMI >= 40) Serious obesity comorbidity presence: without serious comorbidity Body mass index: BMI 40.0-44.9 Qualified Code(s): E66.01 - Morbid (severe) obesity due to excess calories; Z68.41 - Body mass index [BMI]40.0- 44.9, adult Plan: Diet and exercise Orders: Orders XR hip LT w PEL1V Today G89.29 - Other chronic pain, R10.32 - Left lower quadrant pain Referrals Urology Referral N50.812 - Left testicular pain Coding Level of Care Code Est Pt Level 4 (83025) Diagnoses Lymphadenopathy, inguinal R59.0 Right renal stone N20.0 Impaired glucose tolerance R73.02 Essential hypertension I10 Hypertension type: essential hypertension Hypertriglyceridemia E78.1 Class 3 severe obesity due to excess calories without serious comorbidity with body mass index (BMI) of 40.0 to 44.9 in adult E66.01; Z68.41 Obesity type: due to excess calories Obesity classification: adult class 3 (BMI >= 40) Serious obesity comorbidity presence: without serious comorbidity Body mass index: BMI 40.0-44.9
== END 2023-10-19 12:31 | disposition home or self-care (01) ==
PROVIDERS: PCP Internal Medicine; Visit Provider Internal Medicine
DX: R59.0 Localized enlarged lymph nodes (principal); N20.0 Calculus of kidney; E66.01 Morbid (severe) obesity due to excess calories; Z68.41 Body mass index [BMI] 40.0-44.9, adult; R73.02 Impaired glucose tolerance (oral); I10 Essential (primary) hypertension; E78.1 Pure hyperglyceridemia
CPT/HCPCS: 99214

== ENCOUNTER 2023-10-19 12:35 | Outpatient (REF) | payer OTHER, SELFPAY ==
--- NOTE | ~2023-10-19 | XR_ITS ---
EXAMINATION: XR HIP, LEFT CLINICAL INFORMATION: Left hip/groin pain following surgery 2 weeks ago. COMPARISON: CT abdomen/pelvis dated 06/29/2023. TECHNIQUE: AP view of the pelvis as well as AP and frog-leg lateral views of the left hip. FINDINGS: No acute fracture or dislocation. Mild right hip joint space narrowing. Tiny bilateral lateral acetabular subchondral cysts with marginal osteophytes. No concerning lytic or blastic osseous lesion. No evidence of avascular necrosis. Phleboliths within the pelvis. XR/XR hip LT w PEL1V IMPRESSION: Mild bilateral hip osteoarthritis, right greater than left.
== END 2023-10-19 12:36 | disposition home or self-care (01) ==
LOC: HO.XRAY 12:35
PROVIDERS: PCP Internal Medicine; Visit Provider Internal Medicine
DX: R10.32 Left lower quadrant pain (principal); G89.29 Other chronic pain
CPT/HCPCS: 73502

== ENCOUNTER 2023-12-16 08:35 | Outpatient (AMB) | payer OTHER, SELFPAY ==
--- NOTE | 2023-12-16 08:37 | MHC.OFFVIS ---
Intake Visit Reasons: left testicular pain Intake Note: New patient is present for Left Testicular Pain Abdomen CT- Shows patient Nonobstructing right renal calculi. Scrotal U/S- Scrotal pearls and epididymal head cysts bilaterally. 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 Accompanied by: Self / Same As Patient Allergies bee pollen [bee stings] Allergy (Severe, Verified 12/16/23 08:44) Anaphylaxis lisinopril Allergy (Intermediate, Verified 12/16/23 08:44) cough Medication List - Last Reconciled 12/16/23 by Vel Thornton MD allopurinol 300 mg PO DAILY apremilast 30 mg PO BID [AUTO PAP 6-16 cm H20 humidified AIR As directed] calcipotriene 0.005% 1 appl topical DAILY clobetasol 0.05% 1 appl topical DAILY deucravacitinib (Sotyktu) 6 mg PO DAILY etanercept (Enbrel) 25 mg subcut QWEEK fluticasone propionate 50 mcg/actuation (Flonase Allergy Relief) 2 sprays intranasal DAILY losartan 25 mg PO DAILY 30 days meloxicam 15 mg PO DAILY 30 days HPI Comments Details: Sang is a pleasant male. He is a patient of Dr. You. He is seen for the following urologic conditions - testicular pain On exam has pain insertion of left rectus This is consistent with inguinal disruption Discussed pathophysiology Recommend 1 month plus stretching exercises Testicular pain PSA 07/11 1.0 Imaging - prominent bilateral inguinal nodes. Biopsy performed.Reactive paracortical and follicular hyperplasia. Nonobstructing punctate right renal calculi. [facility] Medical History Gout COVID-19 vaccine series completed Elevated blood sugar Concussion Carpal tunnel syndrome, bilateral Hypertension Hypertriglyceridemia Psoriatic arthritis Obesity Surgical History History of carpal tunnel release Hx of appendectomy S/P left knee arthroscopy Family History Mother Breast cancer Maternal Grandmother Breast cancer Father Substance abuse Paternal Grandfather Substance abuse Heart attack Paternal Grandmother Substance abuse Other Mental health disorder Social History Housing: House Are you a primary client care consultant to a significant other at home: No Do you presently have visiting nurse or other home services: No Alcohol intake: current Alcohol intake frequency: does not drink Comment: counts correct Patient Tobacco Use Status: Never used Tobacco e-Cigarette/Vaping Use: Never Used Second Hand Smoke Exposure: No service: No Current occupational status: employed Cognitive needs: No Hearing needs: No Vision needs: Yes (Glasses) Results AMB Urinalysis, Automated UA Leukoctes 0 Mik/uL Last Edit by DARRELL Hein on 12/16/23 08:48 UA Nitrite Negative Last Edit by DARRELL Hein on 12/16/23 08:48 UA Urobilinogen 0.2 mg/dL Last Edit by DARRELL Hein on 12/16/23 08:48 UA Protein 0 mg/dL Last Edit by DARRELL Hein on 12/16/23 08:48 UA pH 5.5 Last Edit by DARRELL Hein on 12/16/23 08:48 UA Blood 0 Jhonatan/uL Last Edit by DARRELL Hein on 12/16/23 08:48 UA Specific [place] 1.020 Last Edit by DARRELL Hein on 12/16/23 08:48 UA Ketone Negative Last Edit by DARRELL Hein on 12/16/23 08:48 UA Bilirubin 0 mg/dL Last Edit by DARRELL Hein on 12/16/23 08:48 UA Glucose 0 mg/dL Last Edit by DARRELL Hein on 12/16/23 08:48 Results Reviewed Results Reviewed: Laboratory Last Values Urine pH (Auto) 5.5 12/16/23 08:44 Specific [place] (Auto) 1.020 12/16/23 08:44 Urine Protein (Auto) 0 mg/dL 12/16/23 08:44 Glucose (UA)(Auto) 0 mg/dL 12/16/23 08:44 Urine Ketones (Auto) Negative 12/16/23 08:44 Urine Blood (Auto) 0 Jhonatan/uL 12/16/23 08:44 Urine Nitrite (Auto) Negative 12/16/23 08:44 Urine Bilirubin (Auto) 0 mg/dL 12/16/23 08:44 Urine Urobilinogen (Auto) 0.2 mg/dL 12/16/23 08:44 Leukocyte Esterase (Auto) 0 Mik/uL 12/16/23 08:44 Assessment & Plan Assessment & Plan (1) Left inguinal pain: Code(s): R10.32 - Left lower quadrant pain Category: Medical Plan Six-month follow-up Orders: Orders AMB Urinalysis Automated Today Z13.9 - Encounter for screening, unspecified Medications: New meloxicam 15 mg PO DAILY 30 days 30 tabs 0RF N50.812 - Left testicular pain Patient Instructions: Imaging studies, laboratory and physical exam results were discussed and reviewed in detail. No major barriers to patient understanding were identified. An opportunity to ask questions regarding the treatment plan was provided. All questions were answered. The patient expressed understanding and agreement with the above treatment plan. The patient is aware they should contact our office by phone for worsening of their current condition or the appearance of new urologic symptoms. Compliance is encouraged with any medications and followup testing that is ordered. It is a privilege to participate in the urologic care of your patient. If you have any questions or concerns regarding treatment for the above conditions, or other urologic issues, please do not hesitate to contact me. The office telephone contact is [phone]. This note is constructed using voice recognition software. While every effort has been made to ensure accuracy human resources training manager errors may have been included. Yours sincerely, Dr Vel Thornton MD, [facility] - Urology Providers of Expert, Compassionate Care for the Genitourinary System Coding Level of Care Code New Pt Level 4 (56420) Diagnoses Left inguinal pain R10.32
== END 2023-12-16 09:24 | disposition home or self-care (01) ==
PROVIDERS: PCP Internal Medicine; Visit Provider Urology
DX: R10.32 Left lower quadrant pain (principal); Z13.9 Encounter for screening, unspecified
CPT/HCPCS: 99204

== ENCOUNTER → 2023-12-16 08:35 | Outpatient (BNVA) | payer OTHER, SELFPAY | PROVIDERS: PCP Internal Medicine; Visit Provider Urology | DX: R10.32 Left lower quadrant pain (principal) | CPT/HCPCS: 81003 ==

== ENCOUNTER 2024-02-29 07:41 | Outpatient (AMB) | payer OTHER, SELFPAY ==
[2024-02-29 07:59] VITALS: BP 160/82; PULSE 68; O2SAT 98; BMI 38.2
--- NOTE | 2024-02-29 07:59 | A.OFFPC_ITS ---
Vital Signs 02/29/24 07:59 02/29/24 08:17 Height 5 ft 10 in Weight 266 lb BMI 38.2 BP 160/82 H 138/86 Blood Pressure Location Lt brachial Lt brachial Position Sitting Sitting Pulse 68 Pulse Source Pulse Oximeter Pulse Oximetry (%) 98 Oxygen Delivery Method Room Air Intake Visit Reasons: Groin pain LT side Allergies bee pollen [bee stings] Allergy (Severe, Verified 02/29/24 08:04) Anaphylaxis lisinopril Allergy (Intermediate, Verified 02/29/24 08:04) cough Medication List - Last Reconciled 02/29/24 by Yvette Liao PA-C allopurinol 300 mg PO DAILY apremilast 30 mg PO BID [AUTO PAP 6-16 cm H20 humidified AIR As directed] calcipotriene 0.005% 1 appl topical DAILY clobetasol 0.05% 1 appl topical DAILY deucravacitinib (Sotyktu) 6 mg PO DAILY etanercept (Enbrel) 25 mg subcut QWEEK fluticasone propionate 50 mcg/actuation (Flonase Allergy Relief) 2 sprays intranasal DAILY losartan 25 mg PO DAILY 30 days meloxicam 15 mg PO DAILY 30 days Tobacco use date assessed: 05/11/23 Dental Screening Dental Screen Date: 05/11/23 HPI Groin pain LT side HPI Details 53-year-old obese male with a history of psoriatic arthritis hypertension impaired glucose tolerance obstructive sleep apnea hypertension last seen October [address] You coming in for acute problem. Review of the notes, patient was seen by [facility] 02/25/2024 patient to continue on biologic for psoriasis and follow up in 6 months.? Patient was seen by Urology 12/16/2023 for left testicular pain abdominal CT shows nonobstructing right renal calculi and scrotal ultrasound shows epididymal head cyst bilaterally exam consistent with inguinal disruption recommended stretching exercises and follow up in 6 months. Patient underwent lymph node biopsy with Dr. Singh several months ago and findings were negative advised to undergo repeat US for surveillance. He was diagnosed with sports hernia by urology and advised to do gentle stretching and rest. Does not have any lifting restrictions at the moment states the pain has been improving. Overall he is feeling generally well and has no acute concerns today. [facility] Medical History Gout COVID-19 vaccine series completed Elevated blood sugar Concussion Carpal tunnel syndrome, bilateral Hypertension Hypertriglyceridemia Psoriatic arthritis Obesity Surgical History History of carpal tunnel release Hx of appendectomy S/P left knee arthroscopy Family History Mother Breast cancer Maternal Grandmother Breast cancer Father Substance abuse Paternal Grandfather Substance abuse Heart attack Paternal Grandmother Substance abuse Other Mental health disorder Social History Housing: House Are you a primary wound care nurse to a significant other at home: No Do you presently have visiting nurse or other home services: No Alcohol intake: current Alcohol intake frequency: does not drink Comment: counts correct Patient Tobacco Use Status: Never used Tobacco e-Cigarette/Vaping Use: Never Used Second Hand Smoke Exposure: No service: No Current occupational status: employed Cognitive needs: No Hearing needs: No Vision needs: Yes (Glasses) Questionnaire Thrive Questionnaire Date Thrive assessed: 05/11/23 AUDIT C Alcohol Use Questionnaire (AUDIT-C) 1. How often do you have a drink containing alcohol?: Never 2. How many drinks containing alcohol do you have on a typical day when you are drinking?: 1 or 2 3. How often do you have six or more drinks on one occasion?: Never Total Score: 0 OTONIEL-7 AMB Questionnaire OTONIEL-7 Date OTONIEL - 7 assessed: 05/11/23 Source: Developed by Drs. Gordon Lerma, Nancy Tyson, Frank Snow and colleagues, with an educational steffany from [employer]. Review of Systems Const Denies body aches, Denies chills and Denies fever(s) Eyes Reports no additional complaints ENT Reports no additional complaints Card Denies chest pain, Denies leg edema, Denies lightheadedness and Denies dyspnea Resp Denies dyspnea GI Reports no additional complaints Details: occasional left inguinal pain Denies oliguria, Denies difficulty urinating, Denies urinary frequency, Denies urinary hesitancy and Denies urinary urgency Musc Reports no additional complaints Skin/Breast Reports system reviewed and no additional complaints, except as documented Physical exam (Primary Care) Vital Signs: Last Vital Signs Pulse 68 02/29/24 07:59 BP 160/82 H 02/29/24 07:59 Pulse Ox 98 02/29/24 07:59 Oxygen Delivery Method Room Air 02/29/24 07:59 BMI result Body Mass Index 38.2 Tobacco/Smoking Status: Tobacco use Status Tobacco use date assessed 05/11/23 02/29/24 07:59 Patient Tobacco Use Status Never used Tobacco 02/29/24 07:59 e-Cigarette/Vaping Use Never Used 02/29/24 07:59 Thrive Assessment: Date of Thrive Assessment Date Thrive assessed 05/11/23 02/29/24 07:59 Const General: cooperative, healthy appearing, comfortable and no acute distress Orientation/consciousness: patient oriented x3 HENMT Head: Yes normocephalic Ears: hearing grossly normal bilaterally General nose exam: Normal external nose present Eyes General: appearance normal, both eyes and all related structures Conjunctivae: conjunctivae normal Neck Neck: Yes full ROM and Yes no lymphadenopathy Resp Effort & Inspection: normal respiratory effort Auscultation: clear to auscultation bilaterally, no crackles, no rales, no rhonchi and no wheezes Cardio Rate: regular rate Rhythm: regular rhythm Skin General skin exam: no rashes or lesions noted Neuro General: patient oriented x3 Gait exam (Neuro): Normal gait present Extrem General: Yes normal to inspection, Yes full ROM and No edema Psych Affect: normal affect Attitude: cooperative Insight: Good insight present (Psych) Judgement: Good judgement present (Psych) Coding Level of Care Code Est Pt Level 3 (07025) Diagnoses Left inguinal pain R10.32 Lymphadenopathy, inguinal R59.0 Impaired glucose tolerance R73.02 LFT elevation R79.89 Hypertriglyceridemia E78.1 Essential hypertension I10 Hypertension type: essential hypertension Assessment & Plan Assessment & Plan (1) Left inguinal pain: Code(s): R10.32 - Left lower quadrant pain Category: Medical Plan: Inguinal pain has been improving since restrictions given by Urology. Patient has appt to follow up with urologist in the next coming months to discuss whether or not surgery is needed. Continue to follow with Urology. (2) Lymphadenopathy, inguinal: Comment: Biopsy September 2023- Code(s): R59.0 - Localized enlarged lymph nodes Category: Surgical Plan: Per General surgery's recommendations patient to have repeat ultrasound in March. (3) Impaired glucose tolerance: Code(s): R73.02 - Impaired glucose tolerance (oral) Category: Medical Plan: Decrease the amount of carbohydrates such as pasta, bread, rice, and potatoes and limit the amount of sweets. Although fruits are generally healthy they should be eaten in moderation as they are still high in sugar. Hemoglobin A1c goal of less than 7%. Ordered updated blood work to be done before next physical (4) LFT elevation: Code(s): R79.89 - Other specified abnormal findings of blood chemistry Category: Medical Plan: Ordered for repeat blood work to be completed before next appointment. (5) Hypertriglyceridemia: Code(s): E78.1 - Pure hyperglyceridemia Category: Medical Plan: Avoid foods that are high in cholesterol such as red meat, fried foods, eggs and baked goods. Triglyceride goal of less than 150 and LDL goal of less than 100. Ordered for updated blood work (6) Hypertension: Code(s): I10 - Essential (primary) hypertension Category: Medical Qualifiers: Hypertension type: essential hypertension Qualified Code(s): I10 - Essential (primary) hypertension Plan: Continue on current blood pressure medication. Avoid salt intake and encourage healthy diet and regular exercise. Plan This note was constructed using voice recognition software. While every effort has been made to ensure accuracy and garnett feeder, still areas may have been included sometimes these areas may affect the content or meeting of the given symptoms. Total time spent caring for the patient today was 30 minutes. This includes time spent before the visit reviewing the chart, time spent during the visit, and time spent after the visit and documentation. Orders: Orders Comprehensive Met. Panel Today Z00.00 - Encounter for general adult medical examination without abnormal findings Complete Blood Count Auto Diff Today Z00.00 - Encounter for general adult medical examination without abnormal findings Lipid Panel Today Z00.00 - Encounter for general adult medical examination without abnormal findings Vitamin B12 and Folate Today Z00.00 - Encounter for general adult medical examination without abnormal findings Free T4 (Free Thyroxine) Today Z00.00 - Encounter for general adult medical examination without abnormal findings Vitamin D 25-OH (D2 and D3) Today Z00.00 - Encounter for general adult medical examination without abnormal findings TSH reflex Free T4 Today Z00.00 - Encounter for general adult medical examination without abnormal findings Hemoglobin A1c Today Z00.00 - Encounter for general adult medical examination without abnormal findings PSA, Ultra Sensitive Today Z00.00 - Encounter for general adult medical examination without abnormal findings
[2024-02-29 08:17] VITALS: BP 138/86
== END 2024-02-29 08:28 | disposition home or self-care (01) ==
PROVIDERS: PCP Internal Medicine
DX: R10.32 Left lower quadrant pain (principal); R59.0 Localized enlarged lymph nodes; R73.02 Impaired glucose tolerance (oral); R79.89 Other specified abnormal findings of blood chemistry; E78.1 Pure hyperglyceridemia; I10 Essential (primary) hypertension

== ENCOUNTER 2024-03-21 10:43 | Outpatient (REF) | payer OTHER, SELFPAY | END 2024-03-21 10:44 | disposition home or self-care (01) | LOC: HO.US 10:43 | PROVIDERS: PCP Internal Medicine; Visit Provider Surgery | DX: R59.0 Localized enlarged lymph nodes (principal) | CPT/HCPCS: 76857 ==

== ENCOUNTER → 2024-03-21 10:46 | Outpatient (BNV) | payer OTHER, SELFPAY | PROVIDERS: PCP Internal Medicine; Visit Provider Radiology Diagnostic Radiology | DX: R59.0 Localized enlarged lymph nodes (principal) | CPT/HCPCS: 76857 ==

== ENCOUNTER 2024-05-16 08:32 | Outpatient (AMB) | payer OTHER, SELFPAY ==
[2024-05-16 08:41] VITALS: BP 132/70; PULSE 77; O2SAT 97; BMI 38.0
--- NOTE | 2024-05-16 08:41 | A.OFFPC_ITS ---
Vital Signs 05/16/24 08:41 Height 5 ft 10 in Weight 265 lb BMI 38.0 BP 132/70 Blood Pressure Location Lt brachial Position Sitting Pulse 77 Pulse Source Pulse Oximeter Pulse Oximetry (%) 97 Oxygen Delivery Method Room Air Intake Visit Reasons: pe Intake Note: Patient here for a physical exam University Controller Required: No Accompanied by: Self / Same As Patient Allergies bee pollen [bee stings] Allergy (Severe, Verified 05/16/24 08:43) Anaphylaxis lisinopril Allergy (Intermediate, Verified 05/16/24 08:43) cough Medication List - Last Reconciled 05/16/24 by Kahlil You MD allopurinol 300 mg PO DAILY [AUTO PAP 6-16 cm H20 humidified AIR As directed] calcipotriene 0.005% 1 appl topical DAILY clobetasol 0.05% 1 appl topical DAILY deucravacitinib (Sotyktu) 6 mg PO DAILY etanercept (Enbrel) 25 mg subcut QWEEK losartan 25 mg PO DAILY 30 days Tobacco use date assessed: 05/16/24 Dental Screening Dental Screen Date: 05/16/24 Did you have a dental visit in the last 12 months?: Yes Did you have a dental problem in the last 6 months where you did not have access to dental care?: No Was dental information given to patient?: Patient has dentist HPI pe HPI0 Details The patient is a 54-year-old male presenting with a follow-up for previously identified reactive inguinal lymphadenopathy. The issue was first identified during an ultrasound performed as a follow-up to previous examinations, most recently in March of the previous year. At that time, the ultrasound indicated minimal improvement in bilateral suspected reactive inguinal lymphadenopathy. These enlarged lymph nodes, described as reactive, suggest a response to a condition affecting the legs without indication of malignancy. Additionally, the patient is experiencing symptoms related to a sports hernia diagnosed by Dr. Thornton. The hernia is causing discomfort and pain upon physical exertion and activities involving lifting heavy objects. Dr. Thornton, as of the last interaction, had planned further examination in May. The sports hernia presents with localized discomfort and exacerbates pain with activities such as lifting, specifically mentioned as lifting 50-pound wood pellets for a stove, where the patient reports significant pain in the affected area. The management of such is of interest to the patient, who plans to consult further with Dr. Thornton in hopes of exploring options for relief or repair. In previous medical history, the patient has managed essential hypertension, is currently treated for gout with allopurinol, and has a history of sleep apnea for which continuous positive airway pressure (CPAP) therapy is prescribed but suboptimally tolerated. Lastly, the patient is being treated for psoriasis using topical agents, calcipotrein, and clobetasol cream. - Blood pressure management is stable wi th current medications. - Discussed CPAP machine issues; patient plans to consult with sleep study medicine for options on alternative machines. - Vaccine status discussed; patient is c urrent, including flu vaccination. - Emphasized importance of not lifting h eavy objects to manage sports hernia symptoms. 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 - Moderate alcohol consumption: approxim ately two times weekly, consisting of wine and beer. - No usage of tobacco or recreational dr ugs. - Engaged in lifting activities around t he home which contribute to exacerbation of hernia symptoms. - Plans to attend daughter's wedding and follows a diet for weight loss in preparation. - General: Denies recent weight changes. - HEENT: Reports mild hearing loss as no haley by ; denies recent infections. - Respiratory: Denies shortness of breat h. - Cardiovascular: Denies dizziness or pr e-syncope. - Gastrointestinal: Denies nausea, vomit ing, or changes in bowel movements. - Genitourinary: No nocturia reported. - Musculoskeletal: Reports pain related to physical exertion regarding sports hernia. - Integumentary: Denies rashes outside o f managed psoriasis. - Ultrasound indicates reactive inguinal lymphadenopathy without concerning features for malignancy. - Blood work including CEDRATE and CRP w ithin normal limits. [facility] Medical History (Updated 05/16/24 @ 09:18 by Kahlil You MD) Gout COVID-19 vaccine series completed Elevated blood sugar Concussion Carpal tunnel syndrome, bilateral Hypertension Hypertriglyceridemia Psoriatic arthritis Obesity Surgical History (Updated 05/16/24 @ 08:44 by DARRELL Smith) History of lymph node biopsy History of carpal tunnel release Hx of appendectomy S/P left knee arthroscopy Family History Mother Breast cancer Maternal Grandmother Breast cancer Father Substance abuse Paternal Grandfather Substance abuse Heart attack Paternal Grandmother Substance abuse Other Mental health disorder Social History (Updated 05/16/24 @ 09:17 by Kahlil You MD) Housing: House Are you a primary resident care associate to a significant other at home: No Do you presently have visiting nurse or other home services: No Alcohol intake: current Alcohol intake frequency: does not drink Comment: 2 days weekend 3-4 drinks Patient Tobacco Use Status: Never used Tobacco e-Cigarette/Vaping Use: Never Used Second Hand Smoke Exposure: No service: No Current occupational status: employed Cognitive needs: No Hearing needs: No Vision needs: Yes (Glasses) Questionnaire PHQ-9 Over the last 2 weeks, how often have you been bothered by any of the following problems? 1. Little interest or pleasure in doing things: not at all 2. Feeling down, depressed, or hopeless: not at all 3. Trouble falling or staying asleep, or sleeping too much: not at all 4. Feeling tired or having little energy: not at all 5. Poor appetite or overeating: not at all 6. Feeling bad about yourself - or that you are a failure or have let yourself or your family down: not at all 7. Trouble concentrating on things, such as reading the newspaper or watching television: not at all 8. Moving or speaking so slowly that other people could have noticed. Or the opposite - being so fidgety or restless that you have been moving around a lot more than usual: not at all 9. Thoughts that you would be better off or of hurting yourself in some way: not at all Total score: 0 Depression Screening Interpretation: Negative Depression Screening Done: Yes Source: Developed by Drs. Gordon Lerma, Nanyc Tyson, Frank Snow and colleagues, with an educational steffany from [employer]. Thrive Questionnaire Date Thrive assessed: 05/16/24 I am a: Patient What is your living situation today?: I have a steady place to live Within the past 12 months, did the food you bought not last and you didn't have the money to get more?: Often true Within the past 12 months, did you worry whether your food would run out before you got money to buy more?: Often true Do you have trouble paying for medicines?: No Do you have trouble getting transportation to medical appointments?: No Do you have trouble paying your heating and electricity bill?: No Do you have trouble taking care of your child, family member or friend?: No Do you have trouble with day-to-day activities such as bathing, preparing meals, shopping, managing finances, etc.?: No Are you currently unemployed and looking for a job?: No Are you interested in more education?: No Please select the resources that you would like help with: None Currently or been in a relationship where the following occur: No concerns reported THRIVE Score: 2 AUDIT C Alcohol Use Questionnaire (AUDIT-C) 1. How often do you have a drink containing alcohol?: 2-4 times a month 2. How many drinks containing alcohol do you have on a typical day when you are drinking?: 1 or 2 3. How often do you have six or more drinks on one occasion?: Less than monthly Total Score: 3 OTONIEL-7 AMB Questionnaire OTONIEL-7 Date OTONIEL - 7 assessed: 05/16/24 Feeling nervous, anxious, or on edge: 0 = Not at all Not being able to stop or control worryin = Not at all Worrying too much about different things: 0 = Not at all Trouble relaxin = Not at all Being so restless that it is hard to sit still: 0 = Not at all Becoming easily annoyed or irritable: 0 = Not at all Feeling afraid as if something awful might happen: 0 = Not at all Total OTONIEL-7 score (0-4 normal; 5-9 mild; 10-14 moderate; 15-21 severe): 0 Source: Developed by Drs. Gordon Lerma, Nancy Tyson, Frank Snow and colleagues, with an educational steffany from [employer]. Review of Systems Const Denies poor appetite and Denies weakness Eyes Denies no additional complaints ENT Reports Normal hearing present, Denies dizziness, Denies nasal congestion, Denies tinnitus and Denies sore throat Card Denies chest pain, Denies syncope, Denies rapid heart rate and Denies dyspnea Resp Denies cough and Denies dyspnea GI Denies change in stool character, Reports constipation, Denies diarrhea, Denies nausea and Denies vomiting Denies dysuria and Denies urinary frequency Neuro Reports Normal hearing present, Denies confusion, Denies dizziness, Denies syncope and Denies weakness Psych Denies confusion Physical exam (Primary Care) Vital Signs: Last Vital Signs Pulse 77 05/16/24 08:41 BP 132/70 05/16/24 08:41 Pulse Ox 97 05/16/24 08:41 Oxygen Delivery Method Room Air 05/16/24 08:41 BMI result Body Mass Index 38.0 Tobacco/Smoking Status: Tobacco use Status Tobacco use date assessed 05/16/24 05/16/24 08:47 Patient Tobacco Use Status Never used Tobacco 05/16/24 08:47 e-Cigarette/Vaping Use Never Used 05/16/24 08:47 PHQ-9: PHQ-9 Score PHQ-9: Total score 0 05/16/24 08:47 Depression Screening Interpretation: Negative Thrive Assessment: Date of Thrive Assessment Date Thrive assessed 05/16/24 05/16/24 08:47 Currently or been in a relationship where the following occur: No concerns reported Const General: No confusion Orientation/consciousness: No confusion HENMT Head: Yes normocephalic Ears: external ears normal and TM's normal bilaterally Face and sinus: Yes normal facial exam Mouth: moist mucous membranes Throat: Yes tonsils normal Eyes Conjunctivae: conjunctivae normal Pupils: Equal, round and reactive pupils present and Pupil accommodation reflex normal Direct Ophthalmoscopy: normal light reflex Neck Neck: No lymphadenopathy Thyroid: Thyroid normal Chest Chest palpation & inspection: normal inspection of the chest Resp Effort & Inspection: normal respiratory effort and no audible wheezes Auscultation: clear to auscultation bilaterally, no crackles, no wheezes and lung sounds not diminished Cardio Rate: regular rate Rhythm: regular rhythm Peripheral pulses: radial pulses present and dorsalis pedis present GI Palpation (GI): no masses Auscultation: normal bowel sounds and normoactive bowel sounds Rectal Exam - Male: Yes deferred Skin General skin exam: no rashes or lesions noted Rashes: no rashes Neuro General: No confusion Cranial nerves: Yes Equal, round and reactive pupils present and Yes Normal hearing present Cognition (Neuro): normal cognition Gait exam (Neuro): Normal gait present Motor exam (neuro): 5/5 motor strength present throughout Deep tendon reflexes (DTR's): Right brachioradialis reflex intensity grade: 2+, Left brachioradialis reflex intensity grade: 2+, Right patellar reflex intensity grade: 2+ and Left patellar reflex intensity grade: 2+ Extrem General: No edema Coding Level of Care Code Est Pt Prev Care 40-64y([id number]) Diagnoses Annual physical exam Z00.00 Lymphadenopathy, inguinal R59.0 Right renal stone N20.0 Obstructive sleep apnea G47.33 Impaired glucose tolerance R73.02 Fatty liver K76.0 Essential hypertension I10 Hypertension type: essential hypertension Psoriatic arthritis L40.50 Class 3 severe obesity due to excess calories without serious comorbidity with body mass index (BMI) of 40.0 to 44.9 in adult E66.01; Z68.41 Obesity type: due to excess calories Obesity classification: adult class 3 (BMI >= 40) Serious obesity comorbidity presence: without serious comorbidity Body mass index: BMI 40.0-44.9 Hearing deficit H91.90 Assessment & Plan Assessment & Plan (1) Annual physical exam: Code(s): Z00.00 - Encounter for general adult medical examination without abnormal findings Category: Medical (2) Lymphadenopathy, inguinal: Comment: Biopsy September 2023- Code(s): R59.0 - Localized enlarged lymph nodes Category: Surgical (3) Right renal stone: Comment: June 2023IMPRESSION: No acute intra-abdominal or pelvic pathology. Diverticulosis without diverticulitis. Nonobstructing right renal calculi. Mild hepatic steatosis. Prominent bilateral iliac and groin lymph nodes, correlate with physical examination. Ultrasound may be warranted. Code(s): N20.0 - Calculus of kidney Category: Medical (4) Obstructive sleep apnea: Comment: 05/21/2022 Code(s): G47.33 - Obstructive sleep apnea (adult) (pediatric) Category: Medical (5) Impaired glucose tolerance: Code(s): R73.02 - Impaired glucose tolerance (oral) Category: Medical (6) Fatty liver: Code(s): K76.0 - Fatty (change of) liver, not elsewhere classified Category: Medical (7) Hypertension: Code(s): I10 - Essential (primary) hypertension Category: Medical Qualifiers: Hypertension type: essential hypertension Qualified Code(s): I10 - Essential (primary) hypertension (8) Psoriatic arthritis: Code(s): L40.50 - Arthropathic psoriasis, unspecified Category: Medical (9) Obesity: Code(s): E66.9 - Obesity, unspecified Category: Medical Qualifiers: Obesity type: due to excess calories Obesity classification: adult class 3 (BMI >= 40) Serious obesity comorbidity presence: without serious comorbidity Body mass index: BMI 40.0-44.9 Qualified Code(s): E66.01 - Morbid (severe) obesity due to excess calories; Z68.41 - Body mass index [BMI]40.0- 44.9, adult (10) Hearing deficit: Code(s): H91.90 - Unspecified hearing loss, unspecified ear Category: Medical Plan - Schedule appointment with Dr. Royal in May for further evaluation of sports hernia and discuss potential surgical intervention if necessary. - Continue management of hypertension and psoriasis with current medication; monitor response to treatment. - Address sleep apnea concerns through sleep medicine consultation for CPAP machine alternatives and adjustments. - Follow-up blood work required to monitor for diabetes; fasting required prior to draw. - Encourage weight management and avoidance of heavy lifting to alleviate hernia-related discomfort. During this visit, the reactive inguinal lymphadenopathy findings were explained to the patient as a benign reactive process indicative of underlying limb-rela haley conditions, rather than a neoplastic process, alleviating associated anxiety. The potential surgical repair of the sports hernia was discussed, including the option for further evaluation with Dr. Thornton. Risks of hernia progression and acute complications were highlighted, emphasizing the importance of symptom monitoring. A shift to alternative CPAP solutions was advised for better compliance due to diaphragm issues, and a plan for follow-up consultations was devised. Weight loss efforts were supported in preparation for the patient?s daughter's wedding, recognizing the impact of social and physical changes on his overall health. - Follow up with Dr. Royal for sports hernia management as scheduled. - Avoid heavy lifting to prevent worsening hernia-related symptoms. - Continue current medications for hypertension and gout; use psoriasis creams as directed. - Schedule blood work with fasting requirements prior to testing. - Consult sleep medicine team regarding alternative CPAP device options. - Maintain healthy diet and exercise regimen, aiming for weight reduction. Orders: Orders Vitamin B12 and Folate Today Z00.00 - Encounter for general adult medical examination without abnormal findings Vitamin D 25-OH (D2 and D3) Today Z00.00 - Encounter for general adult medical examination without abnormal findings Complete Blood Count Auto Diff Today Z00.00 - Encounter for general adult medical examination without abnormal findings Free T4 (Free Thyroxine) Today Z00.00 - Encounter for general adult medical examination without abnormal findings Comprehensive Met. Panel Today Z00.00 - Encounter for general adult medical examination without abnormal findings Hemoglobin A1c Today Z00.00 - Encounter for general adult medical examination without abnormal findings PSA, Ultra Sensitive Today Z00.00 - Encounter for general adult medical examination without abnormal findings TSH reflex Free T4 Today Z00.00 - Encounter for general adult medical examination without abnormal findings Referrals Sleep Medicine Referral G47.33 - Obstructive sleep apnea (adult) (pediatric) Speech and Hearing Referral H91.90 - Unspecified hearing loss, unspecified ear
--- OUTSIDE RECORDS SUMMARY | 2024-05-16 12:44 | XMS_ITS | Patient Health Record ---
Author Organization [facility] Address [address] [place] [address] Care Team Providers Care Meat Team Lead Name Role Phone Kahlil You MD Primary Care Provider Gordon Santana [phone] ALLERGIES Allergen (clinical drug ingredient) Drug/Non Drug [...] malignant neoplasm of colon (Z12.11) Active confirmed [id number] Problem Preprocedural examination (Z01.818) Active confirmed [id number] Problem Fatty liver (K76.0) Active confirmed [id number] Problem Elevated liver enzymes (R74.8) Active confirmed [id number] Problem Diverticulosis of colon (K57.30) Active confirmed Diverticulosi s of colon ([id number]) PLAN OF TREATMENT Pending Test Test Name [...] Insured Coverage Start Date Coverage End Date [facility] [address] [place] [address] [id number] MEGAN MCKEON Self - patient is the insured MEDICAL (GENERAL) HISTORY Medical History History ICD Code High blood pressure Psoriatic arthritis-on Enbrel for many y ears Gout Denies NE,DM,CVA,Lung disease,renal dise ase Torn right biceps in [...]
== END 2024-05-16 09:31 | disposition home or self-care (01) ==
PROVIDERS: PCP Internal Medicine; Visit Provider Internal Medicine
DX: Z00.00 Encounter for general adult medical examination without abnormal findings (principal); L40.50 Arthropathic psoriasis, unspecified; E66.01 Morbid (severe) obesity due to excess calories; Z68.41 Body mass index [BMI] 40.0-44.9, adult; R59.0 Localized enlarged lymph nodes; N20.0 Calculus of kidney; G47.33 Obstructive sleep apnea (adult) (pediatric); R73.02 Impaired glucose tolerance (oral); K76.0 Fatty (change of) liver, not elsewhere classified; I10 Essential (primary) hypertension

== ENCOUNTER 2024-05-23 07:59 | Outpatient (AMB) | payer OTHER, SELFPAY ==
--- NOTE | 2024-05-23 08:12 | A.OFFVIS_ITS ---
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 He has called [facility] several times for support with his sleep. His complaints of loud snoring, and gasping for air. He wakes up daily feeling very tired. His machine is filling up with water, and he is not able to adjust the settings. 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 He is on Losartan 25mg PO daily, his bp is elevated today 140/80. Denies morning headaches and RLS. His diet is poor. He does walk on the treadmill 2x a week, 5 miles as tolerable is being evaluated for Inguinal hernia f/u. His mood and memory is okay. Alcohol 2-3 times a week, denies smoking, and edibles. [facility] Medical History Gout COVID-19 vaccine series completed Elevated blood sugar Concussion Carpal tunnel syndrome, bilateral Hypertension Hypertriglyceridemia Psoriatic arthritis Obesity Surgical History History of lymph node biopsy History of carpal tunnel release Hx of appendectomy S/P left knee arthroscopy Family History Mother Breast cancer Maternal Grandmother Breast cancer Father Substance abuse Paternal Grandfather Substance abuse Heart attack Paternal Grandmother Substance abuse Other Mental health disorder Social History Housing: House Are you a primary healthcare associate to a significant other at home: No Do you presently have visiting nurse or other home services: No Alcohol intake: current Alcohol intake frequency: does not drink Comment: 2 days weekend 3-4 drinks Patient Tobacco Use Status: Never used Tobacco e-Cigarette/Vaping Use: Never Used Second Hand Smoke Exposure: No service: No Current occupational status: employed Cognitive needs: No Hearing needs: No Vision needs: Yes (Glasses) Physical Exam Vital Signs: Last Vital Signs Pulse 73 05/23/24 08:13 BP 144/80 H 05/23/24 08:13 Pulse Ox 95 05/23/24 08:13 Oxygen Delivery Method Room Air 05/23/24 08:13 BMI result Body Mass Index 38.0 Const General: cooperative, no acute distress and well developed Nutritional Appearance: other (BMI 38) Orientation/consciousness: patient oriented x3 HEENT Face and sinus: Yes normal facial exam and Yes face symmetric Teeth and gingiva: other ([place] 4) Eyes Pupils: Equal, round and reactive pupils present Neck Neck: Yes full ROM Resp Effort & Inspection: normal respiratory effort and able to speak in complete sentences Neuro General: patient oriented x3 Cranial nerves: Yes CN's II-XII intact bilaterally, Yes Facial sensation intact/muscles of mastication intact, Yes Equal, round and reactive pupils present, Yes Normal accommodation reflex present, Yes Bilaterally intact EOM present, Yes Nystagmus not present, Yes Normal facial strength present, Yes Midline tongue present, Yes Ability to bilaterally rotate head present and Yes Ability to bilaterally elevate shoulders present Cognition (Neuro): normal cognition Gait exam (Neuro): Normal gait present Motor exam (neuro): 5/5 motor strength present throughout Deep tendon reflexes (DTR's): Right triceps reflex intensity grade: 2+, Left triceps reflex intensity grade: 2+, Rt Biceps (C5, C6): 2+, Left biceps reflex intensity grade: 2+, Right brachioradialis reflex intensity grade: 2+, Left brachioradialis reflex intensity grade: 2+, Right patellar reflex intensity grade: 2+ and Left patellar reflex intensity grade: 2+ Psych Appearance: grossly normal Thought process: Normal thought process present Thought content: Normal thought content present Results Reviewed Results Reviewed: IMPRESSION: Mar 2024 / Bilateral Inguinalopathy 1. Allowing for differences in technique and measurement, minimal improvement in bilateral suspected reactive inguinal lymphadenopathy. 01/2021 R. Bicep tendon Rupture 05/2022 Sleep Study MATHIEU AHI is 15 snoring 12% of dleep with no nocturnal hypoxemia CPAP at 6-12coN95 and weight reduction, positional therapy and sleep hygiene Assessment & Plan Assessment & Plan (1) Hypertension: Code(s): I10 - Essential (primary) hypertension Category: Medical Qualifiers: Hypertension type: essential hypertension Qualified Code(s): I10 - Essential (primary) hypertension (2) Obesity: Code(s): E66.9 - Obesity, unspecified Category: Medical Qualifiers: Obesity type: due to excess calories Obesity classification: adult class 3 (BMI >= 40) Serious obesity comorbidity presence: without serious comorbidity Body mass index: BMI 40.0-44.9 Qualified Code(s): E66.01 - Morbid (severe) obesity due to excess calories; Z68.41 - Body mass index [BMI]40.0- 44.9, adult (3) Loud snoring: Code(s): R06.83 - Snoring Category: Medical (4) Fatigue due to sleep pattern disturbance: Code(s): R53.83 - Other fatigue; G47.9 - Sleep disorder, unspecified Category: Medical Plan HST Fatigue: Labs: CBC/ CMP. B12/ Vit D/ TSH/ Sleep in a quiet dark, temperatures below 68, no devices in bed. Side sleeping is the best for restful sleep. Obesity: Weight management: BMI is elevated 38.0, patient declined today HTN is the number one modifiable RF with regards to CV events. Patient Instructions: Labs and HST Coding Level of Care Code Est Pt Level 4 (03945) Diagnoses Essential hypertension I10 Hypertension type: essential hypertension Class 3 severe obesity due to excess calories without serious comorbidity with body mass index (BMI) of 40.0 to 44.9 in adult E66.01; Z68.41 Obesity type: due to excess calories Obesity classification: adult class 3 (BMI >= 40) Serious obesity comorbidity presence: without serious comorbidity Body mass index: BMI 40.0-44.9 Loud snoring R06.83 Fatigue due to sleep pattern disturbance R53.83; G47.9 Time Spent (min) 30 Sleep Questionnaire Difficulty falling asleep: No Difficulty staying asleep?: Yes Number of arousals: 2-3x Snoring: Yes (Loudly) Witnessed apneas: Yes Gasping arousals: Yes Nocturia: No GERD: No Vivid dreams: No Acting out dreams: No Abnormal behavior in sleep: No Abnormal movements in sleep: No Morning headaches: No Excessive daytime sleepiness: Yes Daytime naps: No Restless legs: No Hallucinations: No Sleep paralysis: No Drop attacks: No Sleep Study: Yes (05/2022) CPAP: Yes
[2024-05-23 08:13] VITALS: BP 144/80; PULSE 73; O2SAT 95; BMI 38.0
== END 2024-05-23 08:59 | disposition home or self-care (01) ==
PROVIDERS: PCP Internal Medicine; Visit Provider Physician Assistant Medical
DX: I10 Essential (primary) hypertension (principal); E66.01 Morbid (severe) obesity due to excess calories; Z68.41 Body mass index [BMI] 40.0-44.9, adult; R06.83 Snoring; R53.83 Other fatigue; G47.9 Sleep disorder, unspecified
CPT/HCPCS: 99214

== ENCOUNTER 2024-06-04 08:19 | Outpatient (REF) | payer OTHER, SELFPAY ==
[2024-06-04 08:41] LABS: MANUAL DIFF FLAG NO
[2024-06-04 09:18] LABS: Basophils Percent Auto 0.5 % (0-2); Eosinophils Absolute Auto 0.1 X10*3/uL (0.0-0.4); Eosinophils Percent Auto 1.8 % (0-4); Hematocrit 48.5 % (42.0-52.0); Hemoglobin 16.6 g/dl (14.0-18.0); Imm Gran Abs Auto 0.02 X10*3/uL (0.00-0.03); Imm Gran Pct Auto 0.3 % (0.0-0.4); Lymphocytes Absolute Auto 1.1 X10*3/uL (1.2-4.9); Lymphocytes Percent Auto 17.6 % (20-40); Mean Corpuscular HGB Conc 34.2 g/dl (31.0-36.0); Mean Corpuscular Hemoglobin 30.8 pg (27.0-33.0); Mean Platelet Volume 9.7 fL (9.4-12.4); Monocytes Absolute Auto 0.5 X10*3/uL (0.1-1.2); Monocytes Percent Auto 7.5 % (2-11); Neutrophils Absolute Auto 4.4 x10*3/uL (2.0-8.3); Neutrophils Percent Auto 72.3 % (45-73); Platelet Count 280 X10*3/uL (160-400); Red Blood Count 5.39 X10*6/uL (4.60-5.80); Red Cell Distribution Width 13.1 % (11.0-16.0); White Blood Count 6.1 X10*3/uL (4.8-10.8)
[2024-06-04 09:30] LABS: Estimated Average Glucose 114 mg/dL; Hemoglobin A1C 160.9088 umol/L; Hemoglobin A1c % 5.6 % (<6.0); Total Hemoglobin (HGBA1C) 4318.7383 umol/L
[2024-06-04 09:51] LABS: Alanine Aminotransferase 26 U/L (0-40); Albumin Level 4.3 g/dL (3.5-5.0); Alkaline Phosphatase 84 U/L (39-117); Anion Gap 12 (12-20); Aspartate Amino Transferase 33 U/L (5-37); Bilirubin Total 0.7 mg/dL (0.0-1.0); Blood Urea Nitrogen 13 mg/dL (9-16); Calcium 9.6 mg/dL (8.4-10.2); Carbon Dioxide 28 mmol/L (22-29); Chloride 107 mmol/L (96-108); Cholesterol 186 mg/dL (<200); Estimated Glomerular Filt Rate > 60; Glucose Random 130 mg/dL (60-115); HDL Cholesterol 37 mg/dL (>40); LDL Cholesterol Calculated 125 mg/dL (<100); Potassium 4.8 mmol/L (3.3-5.1); Sodium 142 mmol/L (135-145); Triglycerides 123 mg/dL (<150)
[2024-06-04 10:07] LABS: Free T4 (Free Thyroxine) 0.94 ng/dL (0.71-1.85); TSH reflex Free T4 1.02 uIU/mL (0.32-4.0)
[2024-06-04 10:18] LABS: Folate 7.7 ng/mL (> or = 4.0); Vitamin B12 315 pg/mL (200-900)
[2024-06-09 11:08] LABS: Vitamin D 25-OH, D2 <4 ng/mL; Vitamin D 25-OH, D3 14 ng/mL; Vitamin D 25-OH, Total 14 ng/mL (30-100)
[2024-06-09 22:33] LABS: PSA, Ultra Sensitive 0.93 ng/mL
== END 2024-06-04 08:20 | disposition home or self-care (01) ==
LOC: HO.LAB 08:19
PROVIDERS: PCP Internal Medicine; Visit Provider Internal Medicine
DX: Z00.00 Encounter for general adult medical examination without abnormal findings (principal); Z12.5 Encounter for screening for malignant neoplasm of prostate; Z13.1 Encounter for screening for diabetes mellitus; Z13.6 Encounter for screening for cardiovascular disorders
CPT/HCPCS: 36415; 80053; 80061; 82306; 82607; 82746; 83036; 84153; 84439; 84443; 85025

== ENCOUNTER 2024-06-14 08:21 | Outpatient (AMB) | payer OTHER, SELFPAY ==
--- NOTE | 2024-06-14 08:28 | MHC.OFFVIS ---
Intake Visit Reasons: 6M Follow Up(Testicular Pain) Intake Note: Patient is present for 6M F/U TESTICULAR PAIN) Urology Medication:ALLOPURINOL Antibiotic Allergy:NONE Blood Thinner:NONE Exerciser Required: No Allergies bee pollen [bee stings] Allergy (Severe, Verified 06/14/24 08:29) Anaphylaxis lisinopril Allergy (Intermediate, Verified 06/14/24 08:29) cough HPI Comments Details: Sang is a pleasant male. He is a patient of Dr. You. He is seen for the following urologic conditions - testicular pain Six-month follow-up Prior exam with pain insertion of left rectus - consistent with inguinal disruption Previously recommendation for stretching exercises with deep tissue massage Still has pain on exam at insertion point left rectus Recommend local anesthetic with Kenalog injection - performed in office today Reiterated need for stretching exercises Nursing were follow-up tomorrow for results of injection Testicular pain PSA 07/11 1.0 Imaging - prominent bilateral inguinal nodes. Biopsy performed.Reactive paracortical and follicular hyperplasia. Nonobstructing punctate right renal calculi. COUNT INCLUDES THE [facility] Medical History Gout COVID-19 vaccine series completed Elevated blood sugar Concussion Carpal tunnel syndrome, bilateral Hypertension Hypertriglyceridemia Psoriatic arthritis Obesity Surgical History History of lymph node biopsy History of carpal tunnel release Hx of appendectomy S/P left knee arthroscopy Family History Mother Breast cancer Maternal Grandmother Breast cancer Father Substance abuse Paternal Grandfather Substance abuse Heart attack Paternal Grandmother Substance abuse Other Mental health disorder Social History Housing: House Are you a primary post acute care nurse practitioner to a significant other at home: No Do you presently have visiting nurse or other home services: No Alcohol intake: current Alcohol intake frequency: does not drink Comment: 2 days weekend 3-4 drinks Patient Tobacco Use Status: Never used Tobacco e-Cigarette/Vaping Use: Never Used Second Hand Smoke Exposure: No service: No Current occupational status: employed Cognitive needs: No Hearing needs: No Vision needs: Yes (Glasses) Review of Systems Const Denies chills and Denies fever(s) Card Reports no additional complaints and Denies syncope Resp Denies cough GI Denies abdominal pain and Denies heartburn Reports as per HPI and Denies change in libido Neuro Denies syncope Psych Denies change in libido Endo Denies change in libido Physical Exam Const General: cooperative, healthy appearing, comfortable and no acute distress Orientation/consciousness: patient oriented x3 HEENT Face and sinus: Yes normal facial exam Mouth: moist mucous membranes Neck Neck: Yes normal visual inspection, Yes full ROM and Yes trachea midline Chest Chest palpation & inspection: normal inspection of the chest Resp Effort & Inspection: normal respiratory effort, able to speak in complete sentences and no respiratory distress GI Inspection: Yes normal to inspection Back/Spine/Pelvis Cervical Spine: normal cervical lordosis Thoracic/Lumbar Spine: thoracic and lumbar spine normal to inspection Skin General skin exam: no rashes or lesions noted Neuro General: patient oriented x3, gait normal, tone normal and moves all extremities Extrem General: Yes normal to inspection and Yes capillary refill normal Office Procedures Therapeutic Injection Therapeutic Injection Details: Office procedure - Rectus Insertion Injection The left inguinal ring was palpated with the left hand. Pain was elicited on medial aspect of the inguinal ring at the insertion of the rectus tendon into the symphysis pubis. Alcohol prep was applied. A 22 gauge 3.5 in Chiba needle was advanced and under tactile guidance the tip was placed through rectus tendon insertion. Negative aspiration was performed. A fan-like distribution for injection of a total of 10 cc was made. The injection consisted of 10 cc of 2% lidocaine, and 40 mg Kenalog. The injection was well tolerated with only transient pain. CPT 46558 ICD M77.8 Enthesopathy All charges added?: Additional procedure code (CPT) needed Office Meds triamcinolone acetonide 40 mg/mL suspension for injection Performing Provider: Vel Thornton MD Performing Location: [facility] Administered by: Vel Thornton MD on 06/14/24 08:45 Dose Route Admin Location Dispensed Lot Number Expiration Date [facility] [place] [employer] 40 mg Tendon Sheath Inj. 10 mL Assessment & Plan Assessment & Plan (1) Testicular pain, left: Code(s): N50.812 - Left testicular pain Category: Medical Plan Trigger point injection to tendon sheath performed today Nursing will call tomorrow for follow-up Orders: Orders AMB Trigger Point Injection Today R10.32 - Left lower quadrant pain Patient Instructions: This note is constructed using voice recognition software. While every effort has been made to ensure accuracy drapery cutter errors may have been included. Imaging studies, laboratory and physical exam results were discussed and reviewed in detail. No major barriers to patient understanding were identified. An opportunity to ask questions regarding the treatment plan was provided. All questions were answered. The patient expressed understanding and agreement with the above treatment plan. The patient is aware they should contact our office by phone for worsening of their current condition or the appearance of new urologic symptoms. Compliance is encouraged with any medications and followup testing that is ordered. It is a privilege to participate in the urologic care of your patient. If you have any questions or concerns regarding treatment for the above conditions, or other urologic issues, please do not hesitate to contact me. The office telephone contact is [phone]. Sincerely, Dr Vel Thornton MD, [facility] - Urology Compassionate Specialist Care for the Genitourinary System Coding Level of Care Code Est Pt Level 3 (65373) Diagnoses Testicular pain, left N50.812
--- OUTSIDE RECORDS SUMMARY | 2024-06-14 08:42 | XMS_ITS | Patient Health Record ---
Author Organization [facility] Address [address] [place] [address] Care Team Providers Care Administrative Services Director Name Role Phone Kahlil You MD Primary Care Provider Gordon Santana [phone] ALLERGIES Allergen (clinical drug ingredient) Drug/Non Drug [...] malignant neoplasm of colon (Z12.11) Active confirmed 397612645 Problem Preprocedural examination (Z01.818) Active confirmed [id number] Problem Elevated liver enzymes (R74.8) Active confirmed 972519906 Problem Fatty liver (K76.0) Active confirmed 841940036 Problem Diverticulosis of colon (K57.30) Active confirmed Diverticulosi s of colon (031608979) PLAN OF TREATMENT Pending Test Test Name [...] Insured Coverage Start Date Coverage End Date [facility] [address] [place] [address] [id number] MEGAN MCKEON Self - patient is the insured MEDICAL (GENERAL) HISTORY Medical History History ICD Code High blood pressure Psoriatic arthritis-on Enbrel for many y ears Gout Denies [place],DM,CVA,Lung disease,renal dise ase Torn right biceps in [...]
== END 2024-06-14 08:58 | disposition home or self-care (01) ==
PROVIDERS: PCP Internal Medicine; Visit Provider Urology
DX: R10.32 Left lower quadrant pain (principal); N50.812 Left testicular pain
CPT/HCPCS: 99213

== ENCOUNTER → 2024-06-14 08:21 | Outpatient (BNVA) | payer OTHER, SELFPAY | PROVIDERS: PCP Internal Medicine; Visit Provider Urology | DX: N50.812 Left testicular pain (principal); M77.8 Other enthesopathies, not elsewhere classified; R10.32 Left lower quadrant pain | CPT/HCPCS: 20550; J3300 ==

== ENCOUNTER 2024-09-05 07:28 | Outpatient (AMB) | payer OTHER, SELFPAY ==
--- OUTSIDE RECORDS SUMMARY | 2024-09-05 07:30 | XMS_ITS | Patient Health Record ---
Author Organization [facility] Address [address] [place] [address] Care Team Providers Care Hip Hop Dancer Name Role Phone Kahlil You MD Primary Care Provider Gordon Santana [phone] Allergies Allergen (clinical drug ingredient) Drug/Non Drug Allergy documented on EMR Reaction Allergy Type Onset Date Status Bee Sting Unknown Allergy Active Reason For Referral No Information Medications Medication SIG (Take, Route, Frequency, Duration) Notes Start Date End Date Status Allopurinol 300 MG Oral for 30 Active Lisinopril 5 MG Oral for 30 Ac tive Enbrel Mini 50 MG/ML Subcutaneous for 28 Active Losartan Potassium 25 MG Oral for 90 Active Immunizations Vaccine Route Administration Date Status Comme nts Influenza Unknown 05/01/2021 Refused Social History Tobacco Use: Social History Observation Description Date Details (start date - stop date) Never Smoker NA - NA Tobacco Use/Smoking Question Answer Notes Patient is [...] monthly (1 point) Points 3 Interpretation Negative Section Notes: Nonsmoker; no sig alcohol Nonsmoker; no sig alcohol Problems Problem Type SNOMED Code ICD Code Onset Dates Problem Status W/U Status Risk Notes Problem 719202660 Encounter for screening for malignant neoplasm of colon (Z12.11) Active confirmed Problem [id number] Preprocedural examination (Z01.818) Active confirmed Problem 416082403 Elevated liver enzymes (R74.8) Active confirmed Problem 363346589 Fatty liver (K76.0) Active confirmed Problem Diverticulosis of colon (386185778) Diverticulosis of colon (K57.30) Active confirmed Plan Of Treatment Pending Test Test Name Order Date LIVER [...] Insured Coverage Start Date Coverage End Date [facility] [address] [place] [address] [id number] MEGAN MCKEON Self - patient is the insured Medical (General) History Medical History History ICD Code High blood pressure Psoriatic arthritis-on Enbrel for many y ears Gout Denies [place],DM,CVA,Lung disease,renal dise ase Torn right biceps in [...]
--- NOTE | 2024-09-05 07:38 | MHC.OFFVIS ---
Vital Signs 09/05/24 07:39 Height 5 ft 10 in Weight 265 lb 2 oz BMI 38.0 BP 138/90 H Blood Pressure Location Lt brachial Position Sitting Pulse 79 Pulse Source Pulse Oximeter Pulse Oximetry (%) 97 Oxygen Delivery Method Room Air Intake Visit Reasons: Follow up 3mo Intake Note: Patient presents follow up Sleep. Not sure if was suppose to have sleep study. Allergies bee pollen [bee stings] Allergy (Severe, Verified 09/05/24 07:52) Anaphylaxis lisinopril Allergy (Intermediate, Verified 09/05/24 07:52) cough HPI Comments Details: 54 year old male with HTN referred for sleep evaluation. 06/03/2022 HST c/w moderate jayro AHI is 15 and oxygen nadirs to 84%, snoring for 12% of sleep. Start cpap at [id number]. He has called [facility] several times for support with his cpap machine, tubing fills up with water, and he has trouble adjusting settings, would like a new machine. His complaints of loud snoring, and gasping for air. He wakes up daily feeling very tired. He has allergies, and wakes up with morning headaches, coughing and sneezing. He is on Losartan 25mg PO daily, his bp is elevated today 138/90, he is unable to fall asleep after waking up at 2am. He denies RLS, has a numbing sensation in his quads, due to sports hernia, denies pins, needles, or cramps with radiating pain. His diet is poor and he has psoriatic arthritis, which prevents him from many activities. His mood and memory is okay. He drinks alcohol socially 2-3 times a week, denies smoking, and edibles. [facility] Medical History Gout COVID-19 vaccine series completed Elevated blood sugar Concussion Carpal tunnel syndrome, bilateral Hypertension Hypertriglyceridemia Psoriatic arthritis Obesity Surgical History History of lymph node biopsy History of carpal tunnel release Hx of appendectomy S/P left knee arthroscopy Family History Mother Breast cancer Maternal Grandmother Breast cancer Father Substance abuse Paternal Grandfather Substance abuse Heart attack Paternal Grandmother Substance abuse Other Mental health disorder Social History Housing: House Are you a primary lawn care technician to a significant other at home: No Do you presently have visiting nurse or other home services: No Alcohol intake: current Alcohol intake frequency: does not drink Comment: 2 days weekend 3-4 drinks Patient Tobacco Use Status: Never used Tobacco e-Cigarette/Vaping Use: Never Used Second Hand Smoke Exposure: No service: No Current occupational status: employed Cognitive needs: No Hearing needs: No Vision needs: Yes (Glasses) Physical Exam Vital Signs: Last Vital Signs Pulse 79 09/05/24 07:39 BP 138/90 H 09/05/24 07:39 Pulse Ox 97 09/05/24 07:39 Oxygen Delivery Method Room Air 09/05/24 07:39 BMI result Body Mass Index 38.0 Const General: cooperative, comfortable and no acute distress Nutritional Appearance: obese Orientation/consciousness: patient oriented x3 HEENT Face and sinus: Yes face symmetric Resp Effort & Inspection: normal respiratory effort and able to speak in complete sentences Neuro General: patient oriented x3 and moves all extremities Cranial nerves: Yes Normal facial strength present, Yes Midline tongue present, Yes Ability to bilaterally rotate head present and Yes Ability to bilaterally elevate shoulders present Motor exam (neuro): 5/5 motor strength present throughout and Normal motor muscle tone present throughout Psych Appearance: grossly normal Speech and movement: Normal speech and movement present Thought process: Normal thought process present Thought content: Normal thought content present Results Reviewed Results Reviewed: HST 06/03/2022 AHI is 15 and oxygen Nadirs to 84% snoring is 12% of sleep, start cpap [id number] and monitor for compliance. Labs reviewed with patient, D is low, HDL is low, LDL is high. Assessment & Plan Assessment & Plan (1) Fatigue due to sleep pattern disturbance: Code(s): R53.83 - Other fatigue; G47.9 - Sleep disorder, unspecified Category: Medical (2) Hypertension: Code(s): I10 - Essential (primary) hypertension Category: Medical Qualifiers: Hypertension type: essential hypertension Qualified Code(s): I10 - Essential (primary) hypertension (3) Obesity: Code(s): E66.9 - Obesity, unspecified Category: Medical Qualifiers: Body mass index: BMI 40.0-44.9 Obesity classification: adult class 3 (BMI >= 40) Obesity type: due to excess calories Serious obesity comorbidity presence: without serious comorbidity Qualified Code(s): E66.01 - Morbid (severe) obesity due to excess calories; Z68.41 - Body mass index [BMI]40.0-44.9, adult (4) Loud snoring: Code(s): R06.83 - Snoring Category: Medical (5) Low vitamin D level: Code(s): R79.89 - Other specified abnormal findings of blood chemistry Category: Medical Plan HST reviewed AHI is 15, and O2 desats to 84%. Start cpap will send new order as old machine is inoperable, fills with water unable to adjust the settings. Reviewed labs with patient Vit D is low, start vitamin D daily, all other labs are normal, HDL is low, start omega 3s otc or eating fatty fish like salmon, flax, or denise seeds may help increase HDL while lowering LDL. Snoring can be alleviated with chin straps and mouth gaurd or cpap use. Obesity: Weight management, BMI is elevated 38.0. HTN is the number one modifiable RF with regards to CV events, emphasized the use of cpap daily and weight loss. Medications: New vitamin D3-vitamin K2 (MK4) 1,000-100 unit-mcg 1 tab PO DAILY 6 months 180 tabs 3RF low vitamin d MDD 1000 units daily G47.9 - Sleep disorder, unspecified, R53.83 - Other fatigue, R79.89 - Other specified abnormal findings of blood chemistry Patient Instructions: Sleep Hygiene provided: set a scheduled bedtime and wake time to help regulate the circadian rhythm and balance the release of pituitary hormones. Sleep in a dark room, temperatures below 68 degrees, and no devices n bed. Limit caffeinated products 6 hours prior to bed, and limit fluids 2-4 hours prior to bed. Gentle night yoga, diffusing essential oils, and playing soft music can be relaxing. [facility] if you do not hear from them in 2 weeks. F/U in 3 months for compliance. Coding Level of Care Code Est Pt Level 4 (70699) Diagnoses Fatigue due to sleep pattern disturbance R53.83; G47.9 Essential hypertension I10 Hypertension type: essential hypertension Class 3 severe obesity due to excess calories without serious comorbidity with body mass index (BMI) of 40.0 to 44.9 in adult E66.01; Z68.41 Body mass index: BMI 40.0-44.9 Obesity classification: adult class 3 (BMI >= 40) Obesity type: due to excess calories Serious obesity comorbidity presence: without serious comorbidity Loud snoring R06.83 Low vitamin D level R79.89 Time Spent (min) 20
[2024-09-05 07:39] VITALS: BP 138/90; PULSE 79; O2SAT 97; BMI 38.0
== END 2024-09-05 08:29 | disposition home or self-care (01) ==
LOC: HO.HSMS 07:29
PROVIDERS: PCP Internal Medicine; Visit Provider Physician Assistant Medical
DX: R53.83 Other fatigue (principal); G47.9 Sleep disorder, unspecified; I10 Essential (primary) hypertension; E66.01 Morbid (severe) obesity due to excess calories; Z68.41 Body mass index [BMI] 40.0-44.9, adult; R06.83 Snoring; R79.89 Other specified abnormal findings of blood chemistry
CPT/HCPCS: 99214

== ENCOUNTER → 2024-09-05 07:28 | Outpatient (BNVA) | payer OTHER, SELFPAY | PROVIDERS: PCP Internal Medicine; Visit Provider Physician Assistant Medical ==

== ENCOUNTER 2024-12-12 07:52 | Outpatient (AMB) | payer OTHER, SELFPAY ==
--- OUTSIDE RECORDS SUMMARY | 2019-09-03 13:47 | XMS_ITS | Encounter Summary ---
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 Name Role Phone Hemant Centeno Primary Care Provider [phone] Encounter Details Date Type Department Care Team (Late st Contact Info) Description 09/03/2019 1:47 PM EDT Hospital Encounter [facility] [address] [place] [id number] Emma Pantoja CNP [address] [place] [phone] Social History Tobacco Use Types Packs/Day Years Used Date Smoking Tobacco: Never Smokeless Tobacco: Never Alcohol Use Standard Drinks/Week Comments Not Currently 0 (1 standard drink = 0.6 oz pur e alcohol) Education Answer Date Recorded Are you interested in more education? Not on gera e 08/15/2022 Are you concerned about learning? Not on file 08/15/2022 No 08/15/2022 No 08/15/2022 Digital Access Answer Date Recorded No 09/16/2022 No 09/16/2022 Reliable internet access at home? Not on file 09/16/2022 Device with a working camera? Not on file Sex and Gender Information Value Date Recorded Sex Assigned at Not on file Legal Sex Male 1:30 PM EDT Gender Identity Not on file Sexual Orientation Not on file documented as of this encounter Plan of Treatment Not on file documented as of this encounter Procedures Procedure Name Priority Date/Time Associated Diagnosis Comments XR FOOT 3 OR MORE VIEWS (LEFT) Urgent/patient waiting 09/03/2019 2:14 PM EDT Chronic pain in left foot documented in this encounter Results * XR FOOT 3 OR MORE VIEWS (LEFT) (09/03/2019 2:14 PM EDT) Anatomical Region Laterality Modality Foot Left Radiographic Rosalee ging 09/03/2019 2:31 PM EDT Impressions 09/03/2019 2:34 PM EDT 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 POS [id number] Narrative 09/03/2019 2:34 PM EDT 3 views. No comparison Although there is soft tissue swelling around the interphalangeal joint of the great toe no acute fractures identified. There is however deformity of the inferior cortex and a small marginal well-circumscribed ossification suggesting an old distal phalangeal fracture with osteoarthritis developing in the DIP joint. No other indication of acute or chronic bony injury. Negligible osteoarthritis in the first MTP joint. The metatarsal seems intact as does the rest of the foot. Procedure Note Gary Gomez MD - 09/03/2019 3 views. No comparison Although there is soft tissue swelling around the interphalangeal joint ofthe great toe no acute fractures identified. There is however deformity of the inferior cortex and a small marginalwell-circumscribed ossification suggesting an old distal phalangealfracture with osteoarthritis developing in the DIP joint. No other indication of acute or chronic bony injury. Negligible osteoarthritis in the first MTP joint. The metatarsal seems intact as does the rest of the foot. IMPRESSION: Old first distal phalangeal fracture with developing osteoarthritis in theIP joint but no acute bony injury is apparent. 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 It is not the complete legal health record.[facility]
[2024-12-12 07:53] VITALS: BP 136/90; PULSE 69; O2SAT 97; BMI 39.7
--- NOTE | 2024-12-12 07:53 | A.OFFVIS_ITS ---
Vital Signs 12/12/24 07:53 Height 5 ft 10 in Weight 276 lb 6 oz BMI 39.7 BP 136/90 H Blood Pressure Location Rt brachial Position Sitting Pulse 69 Pulse Source Pulse Oximeter Pulse Oximetry (%) 97 Oxygen Delivery Method Room Air Intake Visit Reasons: Follow up 3mo Intake Note: Patient presents follow up Sleep. Compliance in chart(days, >=4hrs-33%, Average Usage-2hr 35min, Med Pressure-7.2, Med Leaks-0.2, AHI-2.0). Accompanied by: Self / Same As Patient Allergies bee pollen (bee stings) Allergy (Severe, Verified 12/12/24 07:56) Anaphylaxis lisinopril Allergy (Intermediate, Verified 12/12/24 07:56) cough HPI Comments Details: 54 year old male with HTN referred for sleep apnea evaluation by his PCP. 06/03/2022 HST c/w moderate MATHIEU AHI is 15 and oxygen nadirs to 84%, snoring for 12% of sleep. Start cpap at [id number]. MATHIEU Compliance in chart 10/2024 - 11/2024 Total use is days and >=4hrs-33%, Avg use -2hr 35min Med Pressure-7.2, Med Leaks-0.2, AHI-2.0 Washes his tubing, face mask, rinses all equipment, changes filters and fills reservoir with water as needed. He changed face mask for a nasal cannula, and now wakes up feeling refreshed. He does not feel as though he is being water boarded anymore with the new humidity settings now adjusted to his liking. He has allergies, and wakes up with morning headaches, coughing and sneezing, he is taking Enbrel 50mg. BP is elevated today on Losartan 136/90 will defer to PCP. He has paresthesias bilaterally in his quads, he thinks it is due to weight gain and a sports hernia. He denies RLS symptoms of pins, needles, tingling pain, and or cramps with radiating pain. His diet is poor. His mood and memory are stable. He drinks alcohol socially 2-3 times a week, denies smoking, MJ and edibles. [facility] Medical History Gout COVID-19 vaccine series completed Elevated blood sugar Concussion Carpal tunnel syndrome, bilateral Hypertension Hypertriglyceridemia Psoriatic arthritis Obesity Surgical History History of lymph node biopsy History of carpal tunnel release Hx of appendectomy S/P left knee arthroscopy Family History Mother Breast cancer Maternal Grandmother Breast cancer Father Substance abuse Paternal Grandfather Substance abuse Heart attack Paternal Grandmother Substance abuse Other Mental health disorder Social History Housing: House Are you a primary long term care administrator to a significant other at home: No Do you presently have visiting nurse or other home services: No Alcohol intake: current Alcohol intake frequency: does not drink Comment: 2 days weekend 3-4 drinks Patient Tobacco Use Status: Never used Tobacco e-Cigarette/Vaping Use: Never Used Second Hand Smoke Exposure: No service: No Current occupational status: employed Cognitive needs: No Hearing needs: No Vision needs: Yes (Glasses) Physical Exam Vital Signs: Last Vital Signs Pulse 69 12/12/24 07:53 BP 136/90 H 12/12/24 07:53 Pulse Ox 97 12/12/24 07:53 Oxygen Delivery Method Room Air 12/12/24 07:53 BMI result Body Mass Index 39.7 Const General: cooperative, comfortable and no acute distress Nutritional Appearance: obese Orientation/consciousness: patient oriented x3 HEENT Face and sinus: Yes face symmetric Resp Effort & Inspection: normal respiratory effort and able to speak in complete sentences Neuro General: patient oriented x3 and moves all extremities Cranial nerves: Yes Normal facial strength present, Yes Midline tongue present, Yes Ability to bilaterally rotate head present and Yes Ability to bilaterally elevate shoulders present Cognition (Neuro): normal cognition Gait exam (Neuro): Antalgic gait present Motor exam (neuro): 5/5 motor strength present throughout and Normal motor muscle tone present throughout Psych Appearance: grossly normal Speech and movement: Normal speech and movement present Thought process: Normal thought process present Thought content: Normal thought content present Results Reviewed Results Reviewed: MATHIEU Compliance in chart 10/2024 - 11/2024. Reviewed with patient today. Total use is 14/27days and >=4hrs-33%, Avg use -2hr 35min Med Pressure-7.2, Med Leaks-0.2, AHI-2.0 Assessment & Plan Assessment & Plan (1) Fatigue due to sleep pattern disturbance: Code(s): R53.83 - Other fatigue; G47.9 - Sleep disorder, unspecified Category: Medical (2) Obesity: Comment: BMI is 39 Code(s): E66.9 - Obesity, unspecified Category: Medical Qualifiers: Obesity type: due to excess calories Obesity classification: adult class 3 (BMI >= 40) Serious obesity comorbidity presence: without serious comorbidity Body mass index: BMI 40.0-44.9 Qualified Code(s): E66.01 - Morbid (severe) obesity due to excess calories; Z68.41 - Body mass index [BMI]40.0- 44.9, adult (3) Loud snoring: Comment: not compliant/ will speak to him about [employer] if amenable. Code(s): R06.83 - Snoring Category: Medical (4) Low vitamin D level: Code(s): R79.89 - Other specified abnormal findings of blood chemistry Category: Medical Plan MATHIEU on cpap therapy continue cpap therapy, and for >4 hours compliance is reviewed today. Reviewed labs with patient Vit D is low, start vitamin D daily, all other labs are normal, HDL is low, start omega 3s otc or eating fatty fish like salmon, flax, or denise seeds may help increase HDL while lowering LDL. Snoring can be alleviated with chin straps or mouth-guard. Obesity: Weight management, for BMI is elevated 39.7, he has gout and not active. Pt. eduction provided: HTN is the number one modifiable RF with regards to CV events, emphasized the use of cpap daily and weight loss. F/U in 6 months for compliance. Coding Level of Care Code Est Pt Level 4 (22288) Diagnoses Fatigue due to sleep pattern disturbance R53.83; G47.9 Class 3 severe obesity due to excess calories without serious comorbidity with body mass index (BMI) of 40.0 to 44.9 in adult E66.01; Z68.41 Obesity type: due to excess calories Obesity classification: adult class 3 (BMI >= 40) Serious obesity comorbidity presence: without serious comorbidity Body mass index: BMI 40.0-44.9 Loud snoring R06.83 Low vitamin D level R79.89
--- OUTSIDE RECORDS SUMMARY | 2024-12-12 07:57 | XMS_ITS | Patient Health Record ---
Author Organization [facility] Address [address] [place] [address] Care Team Providers Care Loom Checker Name Role Phone Kahlil You MD Primary Care Provider Gordon Santana [phone] Allergies Allergen (clinical drug ingredient) Drug/Non Drug [...] Problem Status W/U Status Risk Notes Problem [id number] Encounter for screening for malignant neoplasm of colon (Z12.11) Active confirmed Problem [id number] Preprocedural examination (Z01.818) Active confirmed Problem [id number] Elevated liver enzymes (R74.8) Active confirmed Problem [id number] Fatty liver (K76.0) Active confirmed Problem Diverticulosis of colon (645456396) Diverticulosis of colon (K57.30) Active confirmed Plan [...] Insured Coverage Start Date Coverage End Date [facility] [address] [place] [address] [phone] [id number] MEGAN MCKEON Self - patient is the insured Medical (General) History Medical History History ICD Code High blood pressure Psoriatic arthritis-on Enbrel for many y ears Gout Denies [place],DM,CVA,Lung disease,renal dise ase Torn right biceps in [...]
== END 2024-12-12 08:37 | disposition home or self-care (01) ==
LOC: HO.HSMS 07:52
PROVIDERS: PCP Internal Medicine; Visit Provider Physician Assistant Medical
DX: R53.83 Other fatigue (principal); G47.9 Sleep disorder, unspecified; E66.01 Morbid (severe) obesity due to excess calories; Z68.41 Body mass index [BMI] 40.0-44.9, adult; R06.83 Snoring; R79.89 Other specified abnormal findings of blood chemistry
CPT/HCPCS: 99214